=== PATIENT | female | born 1955 | race Caucasian/White ===

== ENCOUNTER 2018-06-26 17:36 | Emergency (ER) | payer OTHER ==
[2018-06-26] MEDS ORDERED: Sodium Chloride 0.9% 10 ML Syringe FLUSH PRN (18:25)
[2018-06-26] MEDS ORDERED: cefTRIAXone 2 GM Vial IV ONE (18:27)
[2018-06-26] MEDS ORDERED: Sodium Chloride 0.9% 1,000 ML IV SCH (18:30)
--- NOTE | 2018-06-26 18:44 | EDM.PDOC ---
ED HPI GENERAL MEDICAL PROBLEM - General Chief Complaint: Genitourinary Problem Stated Complaint: SENT BY FOR IV AND ANTIBIOTICS Time Seen by Provider: 06/26/18 17:57 Source of Information: Reports: Patient, RN Notes Reviewed History Limitations: Reports: No Limitations - History of Present Illness INITIAL COMMENTS - FREE TEXT/NARRATIVE: Patient is a 62-year-old female who presents to the ED today for the evaluation of a UTI. She was seen by Henrietta Lacy at the [facility] and she was found to have a "raging UTI" and an elevated white count at over 19,000. The patient states that her symptoms started this last with dysuria, frequency, urgency. She states that she was staying in a hotel somewhere of this weekend and noted that she had a fever. She states she was unable to check this at the time because she did not have a thermometer. She was started on oral Bactrim for management of the UTI and had only taken one dose of her antibiotic, but was called today by Henrietta Lacy on the results of her blood work and urinalysis and was told to come to the ED for further evaluation, possibly for IV fluids and antibiotics. The patient denies pain anywhere, chest pain, shortness of breath, she does have a small amount of nausea but has not had any vomiting or diarrhea. 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 - Related Data Allergies Allergy/AdvReac Type Severity Reaction Status Date / Time No Known Allergies Allergy Verified 06/26/18 17:47 Home Meds: Home Meds Amitriptyline [Elavil] 50 mg PO DAILY 06/26/18 [History] Ciprofloxacin [Ciprofloxacin HCl] 250 mg PO BID #14 tab 06/26/18 [Rx] Citalopram [Citalopram HBr] 20 mg PO DAILY 06/26/18 [History] Fluticasone Propionate [Flonase] 2 spray NASBOTH DAILY 06/26/18 [History] Levothyroxine Sodium [Synthroid] 112 mcg PO DAILY 06/26/18 [History] Loratadine [Claritin] 10 mg PO DAILY 06/26/18 [History] SUMAtriptan [Sumatriptan] 1 spray AMBERLY ASDIRECTED PRN 06/26/18 [History] Past Medical History HEENT History: Reports: Impaired Vision, Sinusitis Other HEENT History: wears eyeglasses. 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: Musculoskeletal History: Reports: Fracture Neurological History: Reports: Migraines Endocrine/Metabolic History: Reports: Hypothyroidism Hematologic History: Reports: Anemia - Infectious Disease History Infectious Disease History: Reports: Chicken Pox, Mumps - Past Surgical History HEENT Surgical History: Reports: Tonsillectomy Female Surgical History: Reports: Hysterectomy Social & Family History - Tobacco Use Smoking Status *Q: Never Smoker Second Hand Smoke Exposure: No - Caffeine Use Caffeine Use: Reports: Coffee, Soda - Recreational Drug Use Recreational Drug Use: No ED ROS GENERAL - Review of Systems Review Of Systems: See Below Constitutional: Reports: Fever. Denies: Chills HEENT: Reports: No Symptoms Respiratory: Reports: No Symptoms Cardiovascular: Reports: No Symptoms Endocrine: Reports: No Symptoms GI/Abdominal: Reports: Nausea. Denies: Abdominal Pain, Constipation, Diarrhea, Vomiting : Reports: Dysuria, Frequency, Urgency. Denies: Flank Pain Musculoskeletal: Reports: No Symptoms Skin: Reports: No Symptoms Neurological: Reports: No Symptoms Psychiatric: Reports: No Symptoms Hematologic/Lymphatic: Reports: No Symptoms Immunologic: Reports: No Symptoms ED EXAM, RENAL/ - Physical Exam Exam: See Below Exam Limited By: No Limitations General Appearance: Alert, WD/WN, No Apparent Distress Eye Exam: Bilateral Eye: EOMI, Normal Inspection Ears: Normal External Exam Nose: Normal Inspection Throat/Mouth: Normal Inspection, Normal Lips, Normal Oropharynx, Normal Voice Head: Atraumatic, Normocephalic Neck: Normal Inspection Respiratory/Chest: No Respiratory Distress, Lungs Clear, Normal Breath Sounds, No Accessory Muscle Use, Chest Non-Tender Cardiovascular: Normal Peripheral Pulses, Regular Rate, Rhythm, No Murmur GI/Abdominal: Normal Bowel Sounds, Soft, Non-Tender, No Distention, No Mass Back Exam: Normal Inspection Extremities: Normal Inspection, Normal Capillary Refill Neurological: Alert, Oriented, Normal Cognition, No Motor/Sensory Deficits Psychiatric: Normal Affect, Normal Mood Skin Exam: Warm, Dry, Intact, Normal Color, No Rash Course - Vital Signs Last Recorded V/S: Last Vital Signs Temp 97.5 F 06/26/18 18:10 Pulse 74 06/26/18 18:10 Resp 16 06/26/18 18:10 BP 98/67 06/26/18 18:10 Pulse Ox 97 06/26/18 18:10 - Orders/Labs/Meds Orders: Active Orders 24 hr Category Date Time Status Peripheral IV Care [RC] . DIRECTED Care 06/26/18 18:26 Ordered CULTURE BLOOD [BC] Stat Lab 06/26/18 18:29 Ordered CULTURE BLOOD [BC] Stat Lab 06/26/18 18:29 Ordered Sodium Chloride 0.9% [Normal Saline] 1,000 ml Med 06/26/18 18:30 Ordered IV ASDIRECTED Sodium Chloride 0.9% [Saline Flush] Med 06/26/18 18:25 Ordered 10 ml FLUSH ASDIRECTED PRN cefTRIAXone [Rocephin] 2 gm Med 06/26/18 19:00 Active Sodium Chloride 0.9% [Normal Saline] 100 ml IV Q24H Blood Culture x2 Reflex Set [OM.PC] Stat Oth 06/26/18 18:28 Ordered Peripheral IV Insertion Adult [OM.PC] Routine Oth 06/26/18 18:24 Ordered Medication Orders Sodium Chloride (Normal Saline) 1,000 mls @ 500 mls/hr IV ASDIRECTED JD Last Admin: 06/26/18 18:52 Dose: 500 mls/hr Ceftriaxone Sodium 2 gm/ (Sodium Chloride) 100 mls @ 200 mls/hr IV Q24H JD Last Admin: 06/26/18 18:55 Dose: 200 mls/hr Sodium Chloride (Saline Flush) 10 ml FLUSH ASDIRECTED PRN PRN Reason: Keep Vein Open Last Admin: 06/26/18 18:37 Dose: 10 ml Meds: Medications Generic Name Dose Route Start Last Admin Trade Name Freq PRN Reason Stop Dose Admin Sodium Chloride 1,000 mls @ 500 mls/hr 06/26/18 18:30 06/26/18 18:52 Normal Saline IV 500 mls/hr ASDIRECTED JD Administration Ceftriaxone Sodium 2 gm/ 100 mls @ 200 mls/hr 06/26/18 19:00 06/26/18 18:55 Sodium Chloride IV 200 mls/hr Q24H JD Administration Sodium Chloride 10 ml 06/26/18 18:25 06/26/18 18:37 Saline Flush FLUSH 10 ml ASDIRECTED PRN Administration Keep Vein Open Discontinued Medications Generic Name Dose Route Start Last Admin Trade Name Freq PRN Reason Stop Dose Admin Ceftriaxone Sodium 2 gm 06/26/18 18:27 06/26/18 18:53 Rocephin IV 06/26/18 18:28 Not Given ONETIME ONE Ceftriaxone Sodium Confirm 06/26/18 18:45 06/26/18 18:53 Rocephin Administered 06/26/18 18:46 Not Given Dose 2 gm IV .STK-MED ONE Sodium Chloride Confirm 06/26/18 18:46 06/26/18 18:53 Normal Saline Administered 06/26/18 18:47 Not Given Dose 100 mls @ as directed .ROUTE .STK-MED ONE - Re-Assessments/Exams Free Text/Narrative Re-Assessment/Exam: 06/26/18 19:21 Patient presents to the ED for evaluation of urinary symptoms. The nurse at initial time of triage stated that she was more septic looking. At my time of evaluation the patient does not appear to exhibit these septic like symptoms. She states that she does have low blood pressure from time to time and does feel as if this might be the case today, she did have a blood pressure of 96/57 at initial evaluation. I have ordered IV fluids, 2 g Rocephin IV in management of this. I have also ordered 2 sets of blood cultures to figure out why her white blood cell count might be 19.9. Her UA at the [facility] is as follows : Color linda appearance cloudy pH 6.0 specific gravity 1.020 protein urine +2 glucose urine negative ketones urine trace Kortney Berg urine +1 occult blood urine +2 urobilinogen urine 4.0 nitrite positive leuk esterase +2 this was a clean catch urine. Urine microscopy was sent to our facility for further evaluation as their facility does not have the ability to do urine microscopy there. Her CBC is as follows: White blood cell count 19.9 red blood cell count 3.9 hemoglobin 12.6 hematocrit 36.7% MCV 93.6 MCH 32.1 MCHC 34.3 Red cell distribution with 46.4 and platelet count of 173. This was done without a differential as well. He did have a metabolic panel done at that clinic and it was also sent to this this facility for further evaluation as they do not have the ability to run a metabolic panel at their facility. They also did obtain a chest x-ray at the clinic and there was nothing acute appreciated on the two- view x-ray. It appears as if Henrietta did send the patient's urine in for culture as well. 06/26/18 20:30 Patient's antibiotic is done and she has got about half a bag of fluid. She states that she feels better, I will send her home with a prescription for oral ciprofloxacin 250 mg by mouth twice daily for 7 days. This will be sent to [facility] as per her choice. She will pick these up in the morning. I did recommend that she follow up in clinic by the end of this week as well. She will be notified if her urine culture results state that she needs different antibiotic therapy. Departure - Departure Time of Disposition: 20:31 Disposition: Home, Self-Care 01 Condition: Fair Clinical Impression: UTI, Urinary tract infectious disease - Discharge Information *PRESCRIPTION DRUG MONITORING PROGRAM REVIEWED*: No *COPY OF PRESCRIPTION DRUG MONITORING REPORT IN PATIENT BENNETT: No Prescriptions: Ciprofloxacin [Ciprofloxacin HCl] 250 mg PO BID #14 tab Instructions: Urinary Tract Infection, Adult, [id number] Referrals: Tahmina Lacy PA-C [Primary Care Provider] - Forms: ED Department Discharge Additional Instructions: You have been evaluated in the ED today for your urinary tract infection. You have been given 2 g of Rocephin IV in the ER tonight this should kick start her antibiotic coverage. Also given IV fluids to help with the symptoms. You have been provided with a prescription for ciprofloxacin this is an antibiotic for your UTI, has been electronic was sent to the [facility] please pick this up tomorrow and take as directed. Please increase your fluid intake as this also helps flush the bacteria out of her system. You will be called or notified if you need a change in antibiotics as your urine culture is pending. You may take Tylenol for your symptomatic fever. Recommend that you follow up at [facility] sometime in end of this week for reevaluation. Please return to the ED if your symptoms change or worsen. - My Orders Last 24 Hours: My Active Orders 06/26/18 18:24 Peripheral IV Insertion Adult [OM.PC] Routine 06/26/18 18:25 Sodium Chloride 0.9% [Saline Flush] 10 ml FLUSH ASDIRECTED PRN 06/26/18 18:26 Peripheral IV Care [RC] . DIRECTED 06/26/18 18:28 Blood Culture x2 Reflex Set [OM.PC] Stat 06/26/18 18:29 CULTURE BLOOD [BC] Stat CULTURE BLOOD [BC] Stat 06/26/18 18:30 Sodium Chloride 0.9% [Normal Saline] 1,000 ml IV ASDIRECTED 06/26/18 19:00 cefTRIAXone [Rocephin] 2 gm Sodium Chloride 0.9% [Normal Saline] 100 ml IV Q24H - Assessment/Plan Last 24 Hours: My Active Orders 06/26/18 18:24 Peripheral IV Insertion Adult [OM.PC] Routine 06/26/18 18:25 Sodium Chloride 0.9% [Saline Flush] 10 ml FLUSH ASDIRECTED PRN 06/26/18 18:26 Peripheral IV Care [RC] . DIRECTED 06/26/18 18:28 Blood Culture x2 Reflex Set [OM.PC] Stat 06/26/18 18:29 CULTURE BLOOD [BC] Stat CULTURE BLOOD [BC] Stat 06/26/18 18:30 Sodium Chloride 0.9% [Normal Saline] 1,000 ml IV ASDIRECTED 06/26/18 19:00 cefTRIAXone [Rocephin] 2 gm Sodium Chloride 0.9% [Normal Saline] 100 ml IV Q24H
[2018-06-26] MEDS ORDERED: cefTRIAXone 2 GM AdvVial IV ONE (18:45)
[2018-06-26] MEDS ORDERED: Sodium Chloride 0.9% 100 ML ONE (18:46)
[2018-06-26] MEDS ORDERED: cefTRIAXone 2 GM in Sodium Chloride 0.9% 100 ML IV SCH (19:00)
== END 2018-06-26 20:49 | disposition home or self-care (01) ==
LOC: JD.ED 17:36
DX: N39.0 Urinary tract infection, site not specified (principal); Z79.899 Other long term (current) drug therapy; E03.9 Hypothyroidism, unspecified
CPT/HCPCS: 36415; 87040; 96361; 96365; 99283; J0696; J7030; J7040

== ENCOUNTER 2018-06-28 16:40 | Inpatient (IN) | payer OTHER ==
[2018-06-28] MEDS ORDERED: Sodium Chloride 0.9% 10 ML Syringe FLUSH PRN (17:30)
[2018-06-28] MEDS ORDERED: cefTRIAXone 2 GM in Sodium Chloride 0.9% 100 ML IV ONE ×2 (17:31→17:45)
[2018-06-28] MEDS: Sodium Chloride 0.9% 1,000 ML IV SCH (17:56)
--- NOTE | 2018-06-28 18:16 | EDM.PDOC ---
ED HPI GENERAL MEDICAL PROBLEM - General Chief Complaint: Fever Stated Complaint: SENT BY DR Raymundo Seen by Provider: 06/28/18 16:51 Source of Information: Reports: Patient, Family, Provider History Limitations: Reports: No Limitations - History of Present Illness INITIAL COMMENTS - FREE TEXT/NARRATIVE: The patient presents from the [place] clinic with fevers, UTI and bacteremia. She was seen a few days ago at the clinic in [place] for a bad UTI. Her urine was positive for a UTI and her WBC was elevated at 19. She was sent here for further management. Blood cultures were obtained, fluids were given and a CMP was done. She was given rocephin here and put on cipro. She then followed up with Henrietta Lacy. Her WBC was coming down and her Bili and liver enzymes were coming down. She was given another shot of rocephin. Her blood cultures came back positive for E-coli. Those results were called to Henrietta at the clinic by Dr Ruelas. He felt she could be treated outpatient. She is still having fevers and chills. She is able to eat and drink. She feels a little better. Henrietta did order an US tomorrow because the patient looked a little jaundice. Onset: Gradual Duration: Day(s): Location: Reports: Other (dysuria) Quality: Reports: Burning Severity: Mild Improves with: Reports: None Worsens with: Reports: None Associated Symptoms: Reports: Fever/Chills. Denies: Chest Pain, Cough, Headaches, Nausea/Vomiting, Shortness of Breath - Related Data Allergies Allergy/AdvReac Type Severity Reaction Status Date / Time No Known Allergies Allergy Verified 06/28/18 16:56 Home Meds: Home Meds Amitriptyline [Elavil] 50 mg PO DAILY 06/26/18 [History] Ciprofloxacin [Ciprofloxacin HCl] 250 mg PO BID #14 tab 06/26/18 [Rx] Citalopram [Citalopram HBr] 20 mg PO DAILY 06/26/18 [History] Fluticasone Propionate [Flonase] 2 spray NASBOTH DAILY 06/26/18 [History] Levothyroxine Sodium [Synthroid] 112 mcg PO DAILY 06/26/18 [History] Loratadine [Claritin] 10 mg PO DAILY 06/26/18 [History] SUMAtriptan [Sumatriptan] 1 spray AMBERLY ASDIRECTED PRN 06/26/18 [History] Past Medical History HEENT History: Reports: Impaired Vision, Sinusitis Other HEENT History: wears eyeglasses. 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: Musculoskeletal History: Reports: Fracture Neurological History: Reports: Migraines Endocrine/Metabolic History: Reports: Hypothyroidism Hematologic History: Reports: Anemia - Infectious Disease History Infectious Disease History: Reports: Chicken Pox, Mumps - Past Surgical History HEENT Surgical History: Reports: Tonsillectomy Female Surgical History: Reports: Hysterectomy Social & Family History - Tobacco Use Smoking Status *Q: Unknown Ever Smoked - Caffeine Use Caffeine Use: Reports: Coffee, Soda ED ROS GENERAL - Review of Systems Review Of Systems: See Below Constitutional: Reports: Fever, Chills HEENT: Reports: No Symptoms Respiratory: Reports: No Symptoms Cardiovascular: Reports: No Symptoms Endocrine: Reports: No Symptoms GI/Abdominal: Reports: No Symptoms : Reports: No Symptoms ED EXAM, SEPSIS - Physical Exam Exam: See Below Exam Limited By: No Limitations General Appearance: Alert, No Apparent Distress Ears: Normal External Exam Nose: Normal Inspection Head: Atraumatic, Normocephalic Neck: Normal Inspection Respiratory/Chest: No Respiratory Distress, Lungs Clear, Normal Breath Sounds Cardiovascular: Regular Rate, Rhythm, No Edema, No Murmur GI/Abdominal Exam: Soft, Non-Tender, No Organomegaly, No Mass Back: Normal Inspection Extremities: Normal Inspection Course - Vital Signs Last Recorded V/S: Last Vital Signs Temp 98.3 F 06/28/18 16:53 Pulse 84 06/28/18 16:53 Resp 16 06/28/18 16:53 BP 110/84 06/28/18 16:53 Pulse Ox 98 06/28/18 16:53 - Orders/Labs/Meds Orders: Active Orders 24 hr Category Date Time Status Cardiac Monitoring [RC] . DIRECTED Care 06/28/18 17:30 Active Peripheral IV Care [RC] . DIRECTED Care 06/28/18 17:30 Active C-REACTIVE PROTEIN [CHEM] Stat Lab 06/28/18 17:50 Results COMPREHENSIVE METABOLIC PN,CMP [CHEM] Stat Lab 06/28/18 17:50 Results Sodium Chloride 0.9% [Normal Saline] 1,000 ml Med 06/28/18 17:30 Active IV ASDIRECTED Sodium Chloride 0.9% [Saline Flush] Med 06/28/18 17:30 Active 10 ml FLUSH ASDIRECTED PRN Peripheral IV Insertion Adult [OM.PC] Stat Oth 06/28/18 17:30 Ordered Medication Orders Sodium Chloride (Normal Saline) 1,000 mls @ 125 mls/hr IV ASDIRECTED JD Last Admin: 06/28/18 17:56 Dose: 125 mls/hr Sodium Chloride (Saline Flush) 10 ml FLUSH ASDIRECTED PRN PRN Reason: Keep Vein Open Last Admin: 06/28/18 17:57 Dose: 10 ml Labs: Laboratory Tests 06/28/18 06/28/18 Range/Units 17:50 17:50 WBC 7.90 (3.98-10.04) K/mm3 RBC 3.47 L (3.98-5.22) M/mm3 Hgb 10.6 L (11.2-15.7) gm/L Hct 31.5 L (34.1-44.9) % MCV 90.8 (79.4-94.8) fl MCH 30.5 (25.6-32.2) pg MCHC 33.7 (32.2-35.5) g/dl RDW Std Deviation 42.3 (36.4-46.3) fL Plt Count 183 (182-369) K/mm3 MPV 10.7 (9.4-12.3) fl Neut % (Auto) 62.5 (34.0-71.1) % Lymph % (Auto) 16.1 L (19.3-51.7) % [place] % (Auto) 19.6 H (4.7-12.5) % Eos % (Auto) 0.9 (0.7-5.8) Baso % (Auto) 0.3 (0.1-1.2) % Neut # (Auto) 4.94 (1.56-6.13) K/mm3 Lymph # (Auto) 1.27 (1.18-3.74) K/mm3 [place] # (Auto) 1.55 H (0.24-0.36) K/mm3 Eos # (Auto) 0.07 (0.04-0.36) K/mm3 Baso # (Auto) 0.02 (0.01-0.08) K/mm3 Manual Slide Review Abnormal smear Sodium 134 L (136-145) mEq/L Potassium 3.6 (3.5-5.1) mEq/L Chloride 102 (98-107) mEq/L Carbon Dioxide 20 L (21-32) mEq/L Anion Gap 15.6 H (5-15) BUN 18 (7-18) mg/dL Creatinine 1.4 H (0.55-1.02) mg/dL Est Cr Clr Drug Dosing TNP Estimated GFR (MDRD) 38 (>60) mL/min BUN/Creatinine Ratio 12.9 L (14-18) Glucose 106 (80-115) mg/dL Calcium 8.5 (8.5-10.1) mg/dL Total Bilirubin 0.8 (0.2-1.0) mg/dL AST 40 H (15-37) U/L ALT 61 H (14-59) U/L Alkaline Phosphatase 130 H (46-116) U/L Total Protein 6.5 (6.4-8.2) g/dl Albumin 2.5 L (3.4-5.0) g/dl Globulin 4.0 gm/dL Albumin/Globulin Ratio 0.6 L (1-2) Meds: Medications Generic Name Dose Route Start Last Admin Trade Name Freq PRN Reason Stop Dose Admin Sodium Chloride 1,000 mls @ 125 mls/hr 06/28/18 17:30 06/28/18 17:56 Normal Saline IV 125 mls/hr ASDIRECTED JD Administration Sodium Chloride 10 ml 06/28/18 17:30 06/28/18 17:57 Saline Flush FLUSH 10 ml ASDIRECTED PRN Administration Keep Vein Open Discontinued Medications Generic Name Dose Route Start Last Admin Trade Name Freq PRN Reason Stop Dose Admin Ceftriaxone Sodium 2 gm/ 100 mls @ 200 mls/hr 06/28/18 17:31 06/28/18 18:00 Sodium Chloride IV 06/28/18 18:00 Not Given ONETIME ONE Ceftriaxone Sodium 2 gm/ 100 mls @ 200 mls/hr 06/28/18 17:45 06/28/18 17:56 Sodium Chloride IV 06/28/18 18:14 200 mls/hr ONETIME ONE Administration - Re-Assessments/Exams Free Text/Narrative Re-Assessment/Exam: 06/28/18 18:18 I ordered an IV NS at 125mL/hr, rocephin 2 grams IV, and labs. 06/28/18 18:25 Her WBC is normal now at 7.9. ON 06/26 it was 19 and on 06/27 it was 10.92. Her creatinine is still elevated at 1.4. Her total bili has improved from 1.9 to 0.8. Her AST has improved from 53 to 40. Her ALT has improved from 76 to 61. Her alk phos is elevated at 130. I did order an US of her RUQ because of the elevated bili. She had no pain in the RUQ though. She told me that she last ate at noon but when the tech came in to do the US she admitted to eating a rice crispy bar at about 3:30. They do have a spot in the morning as needed. 06/28/18 18:[address] Ngo and he agreed to the admission. Departure - Departure Time of Disposition: 18:35 Disposition: Admitted As Inpatient 67 Condition: Fair Clinical Impression: UTI, Urinary tract infectious disease, Bacteremia - Discharge Information Referrals: Tahmina Lacy PA-C [Primary Care Provider] - Forms: ED Department Discharge - My Orders Last 24 Hours: My Active Orders 06/28/18 17:30 Cardiac Monitoring [RC] . DIRECTED Peripheral IV Care [RC] . DIRECTED Sodium Chloride 0.9% [Normal Saline] 1,000 ml IV ASDIRECTED Sodium Chloride 0.9% [Saline Flush] 10 ml FLUSH ASDIRECTED PRN Peripheral IV Insertion Adult [OM.PC] Stat 06/28/18 17:50 C-REACTIVE PROTEIN [CHEM] Stat COMPREHENSIVE METABOLIC PN,CMP [CHEM] Stat - Assessment/Plan Last 24 Hours: My Active Orders 06/28/18 17:30 Cardiac Monitoring [RC] . DIRECTED Peripheral IV Care [RC] . DIRECTED Sodium Chloride 0.9% [Normal Saline] 1,000 ml IV ASDIRECTED Sodium Chloride 0.9% [Saline Flush] 10 ml FLUSH ASDIRECTED PRN Peripheral IV Insertion Adult [OM.PC] Stat 06/28/18 17:50 C-REACTIVE PROTEIN [CHEM] Stat COMPREHENSIVE METABOLIC PN,CMP [CHEM] Stat
[2018-06-28] MEDS ORDERED: Metoprolol Tartrate 5 MG/5 ML SDV IVPUSH PRN (20:41)
[2018-06-28] MEDS ORDERED: LORazepam 2 MG/ML SDV IVPUSH PRN (20:41)
[2018-06-28] MEDS ORDERED: hydrALAZINE 20 MG/ML SDV IVPUSH PRN (20:41)
[2018-06-28] MEDS ORDERED: Ondansetron 4 MG/2 ML SDV IV PRN (20:42)
[2018-06-28] MEDS ORDERED: Albuterol/Ipratropium 3.0-0.5 MG/3 ML Neb Soln NEB PRN (20:42)
[2018-06-28] MEDS ORDERED: Promethazine 6.25 MG in Sodium Chloride 0.9% 50 ML IV PRN (20:42)
[2018-06-28] MEDS ORDERED: Bisacodyl 5 MG Tab PO PRN (20:42)
[2018-06-28] MEDS ORDERED: Polyethylene Glycol 3350 Powder 17 GM Packet PO PRN (20:42)
[2018-06-28] MEDS ORDERED: LORazepam 2 MG/ML SDV IV PRN (20:42)
[2018-06-28] MEDS ORDERED: Temazepam 7.5 MG Cap PO PRN (20:42)
[2018-06-28] MEDS ORDERED: Docusate Sodium 100 MG Cap PO PRN (20:42)
[2018-06-28] MEDS ORDERED: Acetaminophen/HYDROcodone 325-5 MG Tab PO PRN (20:42)
[2018-06-28] MEDS ORDERED: HYDROmorphone 1 MG/ML Syringe IVPUSH PRN (20:42)
[2018-06-28] MEDS ORDERED: Potassium Chloride 20 MEQ Tab.ER PO SCH (21:45)
[2018-06-28] MEDS: Potassium Chloride 20 MEQ Tab.ER PO SCH (22:25)
--- NOTE | 2018-06-28 23:02 | PCM.SN ---
- Free Text/Narrative Note: Briefly seen and examined patient at bedside. She was recently diagnosed with UTI and was found to have Bacteremia on her blood culture due to E. coli. She has been treated outpatient with oral antibiotic and received IV Rocephin in ED prior to coming in to the floor. She denies having any issues. She looks clinically stable and her vitals on presentation are within normal limits. She has no leukocytosis but her CRP is considerably high at 23.9. Patient is essentially coming in for treatment of Bacteremia 2/2 UTI. Our plan is to repeat blood culture, screen for viral infection, continue antibiotic and supportive care. Discharge pending result of repeat blood culture.
[2018-06-29] MEDS: Potassium Chloride 20 MEQ Tab.ER PO SCH (00:57)
[2018-06-29] MEDS: Acetaminophen 325 MG Tab PO PRN ×2 (01:05→18:08)
[2018-06-29] MEDS: Sodium Chloride 0.9% 1,000 ML IV SCH ×3 (02:27→19:09)
[2018-06-29] MEDS: Levothyroxine 112 MCG Tab PO SCH (07:04)
[2018-06-29] MEDS ORDERED: SUMATRIPTAN NAS PRN (07:08)
[2018-06-29] MEDS: Saccharomyces Boulardii (Probiotic) 250 MG Cap PO SCH (09:09)
[2018-06-29] MEDS: Citalopram 20 MG Tab PO SCH (09:10)
[2018-06-29] MEDS: Loratadine 10 MG Tab PO SCH (09:10)
--- NOTE | 2018-06-29 09:17 | US ---
Limited abdominal ultrasound: Multiple real-time images of the upper right abdomen were obtained. Comparison: No prior abdominal imaging. Pancreas appears within normal limits. Liver shows no focal parenchymal abnormality. Gallbladder contains no shadowing gallstones. No gallbladder wall thickening is seen. Common bile duct is slightly prominent at 9-10 mm, etiology of this is not seen. Right kidney shows no hydronephrosis or mass and has a length of 10.5 cm. Portal vein shows normal hepatopedal flow. Impression: 1. Slightly dilated CBD with no additional biliary abnormality being seen. MRCP could be obtained to further evaluate. 2. Other portions of the right upper quadrant abdominal ultrasound are unremarkable. Diagnostic code #3
[2018-06-29] MEDS: Benzocaine/Cetylpyridinium/Menthol Lozenge MUCMEM PRN ×2 (12:16→20:41)
--- NOTE | 2018-06-29 13:19 | MR ---
MRI abdomen (without contrast) Technique: Various sequences were obtained in axial and coronal planes as well as MR cholangiogram exam. Findings: Common bile duct is dilated up to 1.2 cm. Common hepatic duct is also dilated up to 1.0 cm. Pancreatic duct appears mildly prominent 4.5 mm. There are no filling defects seen within the distal CBD to indicate an etiology of obstructing stone. Mild stenosis at the sphincter of Mario is possible as an etiology. Gallbladder contains no filling defects to indicate gallstones. Other visualized portions of the upper abdominal structures appear within normal limits. Impression: 1. Mildly dilated CHD and CBD with no filling defects seen to indicate retained stone as an etiology. Difficult to exclude stenosis at the sphincter of Mario as an etiology. Formal ERCP could be considered to further evaluate. Diagnostic code #3
--- NOTE | 2018-06-29 13:23 | PCM.HP ---
H&P History of Present Illness - General Date of Service: 06/29/18 Admit Problem/Dx: Admission Diagnosis/Problem Admission Diagnosis/Problem Bacteremia Source of Information: Patient, Old Records, Provider, RN, RN Notes Reviewed History Limitations: Reports: No Limitations - History of Present Illness Initial Comments - Free Text/Narative: Daisha Aguila is a 62 yo female who presented to our ED from [facility] with fevers, UTI, and bacteremia. She was seen in the [facility] and diagnosed with UTI. Her WBC was also elevated at 19. She was sent to the ED for further management and at that time blood cultures were obtained fluids were given and a CMP was done. She is given a dose of Rocephin and put on by mouth Cipro and discharged to follow up with Nya Lacy PA-C. In follow-up WBC was noted to be coming down along with her bilirubin and liver enzymes. She received another shot of Rocephin. Her blood cultures and returned positive for Escherichia coli and these were reported back to her PCP by the ED provider. At that time it was felt she could be treated as outpatient however she continued to have fever and chills. Reports she is still able to eat and drink and does feel a little better. Abdominal ultrasound was ordered and originally was going to be completed outpatient as it was thought she looked well jaundice. In the ED Was 98.3. Pulse 84. Respirations 16. Blood pressure 110/84. Pulse ox 98%. Labs are obtained: WBC 7.90. Hemoglobin 10.6. Hematocrit 31.5. She is normocytic. Neutrophils are normal at 60.5. Sodium is just a smidge low at 134. Potassium 3.6. Chloride 102. Corrected 20. Anion gap is 15.6. BUN is 18. Creatinine is 1.4. GFR is 38. Glucose 106. Calcium 8.5. Total bilirubin 0.8. AST is 40, ALT 61, alkaline phosphatase 1:30. Protein is 6.5. Albumin is low at 2.5. She started on IV fluids and 2 g Rocephin. She is reporting pain in the right upper quadrant. She carries a history of impaired vision, recurrent UTIs, migraines, hypothyroidism, anemia. She is a DNR/DNI. Her PCP is Nya Lacy PA-C. - Related Data Allergies/Adverse Reactions: Allergies Allergy/AdvReac Type Severity Reaction Status Date / Time No Known Allergies Allergy Verified 06/28/18 19:38 Home Medications: Home Meds Amitriptyline [Elavil] 50 mg PO DAILY 06/26/18 [History] Ciprofloxacin [Ciprofloxacin HCl] 250 mg PO BID #14 tab 06/26/18 [Rx] Citalopram [Citalopram HBr] 20 mg PO DAILY 06/26/18 [History] Fluticasone Propionate [Flonase] 2 spray NASBOTH DAILY 06/26/18 [History] Levothyroxine Sodium [Synthroid] 112 mcg PO DAILY 06/26/18 [History] Loratadine [Claritin] 10 mg PO DAILY 06/26/18 [History] SUMAtriptan [Sumatriptan] 1 spray AMBERLY ASDIRECTED PRN 06/26/18 [History] Past Medical History HEENT History: Reports: Impaired Vision, Sinusitis Other HEENT History: wears eyeglasses. 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: Musculoskeletal History: Reports: Fracture Neurological History: Reports: Migraines Endocrine/Metabolic History: Reports: Hypothyroidism Hematologic History: Reports: Anemia - Infectious Disease History Infectious Disease History: Reports: Chicken Pox, Mumps - Past Surgical History HEENT Surgical History: Reports: Tonsillectomy Female Surgical History: Reports: Hysterectomy Endocrine Surgical History: Reports: None Neurological Surgical History: Reports: None Social & Family History - Family History Family Medical History: Noncontributory - Tobacco Use Smoking Status *Q: Never Smoker Second Hand Smoke Exposure: No - Caffeine Use Caffeine Use: Reports: None - Recreational Drug Use Recreational Drug Use: No H&P Review of Systems - Review of Systems: Review Of Systems: See Below General: Reports: No Symptoms. Denies: Fever, Chills, Malaise, Weakness, Fatigue HEENT: Reports: No Symptoms. Denies: Headaches, Sore Throat Pulmonary: Reports: No Symptoms. Denies: Shortness of Breath, Wheezing, Pleuritic Chest Pain, Cough, Sputum Cardiovascular: Reports: No Symptoms. Denies: Chest Pain, Palpitations, Dyspnea on Exertion, Edema, Lightheadedness Gastrointestinal: Reports: No Symptoms. Denies: Abdominal Pain, Constipation, Diarrhea, Nausea, Vomiting Genitourinary: Reports: No Symptoms. Denies: Frequency, Pain Musculoskeletal: Reports: No Symptoms Skin: Reports: No Symptoms. Denies: Cyanosis, Jaundice Psychiatric: Reports: No Symptoms. Denies: Confusion Neurological: Reports: No Symptoms. Denies: Trouble Speaking, Difficulty Walking Hematologic/Lymphatic: Reports: No Symptoms Immunologic: Reports: No Symptoms Exam - Exam Exam: See Below - Vital Signs Vital Signs: Last Vital Signs Temp 99.1 F 06/29/18 09:05 Pulse 76 06/29/18 09:05 Resp 16 06/29/18 09:05 BP 95/68 06/29/18 09:05 Pulse Ox 98 06/29/18 09:05 Weight: 172 lb 1.6 oz - Exam Quality Assessment: DVT Prophylaxis General: Alert, Oriented, Cooperative. No: Mild Distress HEENT: Conjunctiva Clear, EACs Clear, EOMI, Hearing Intact, Mucosa Moist & [place] , Nares Patent, Posterior Pharynx Clear, PERRLA Neck: Supple, Trachea Midline Lungs: Clear to Auscultation, Normal Respiratory Effort Cardiovascular: Regular Rate, Regular Rhythm GI/Abdominal Exam: Normal Bowel Sounds, Soft, Non-Tender, No Organomegaly, No Distention, No Abnormal Bruit, No Mass (Female) Exam: Deferred Rectal (Female) Exam: Deferred Back Exam: Normal Inspection, Full Range of Motion Extremities: Normal Inspection, Normal Range of Motion, Non-Tender, No Pedal Edema, Normal Capillary Refill Peripheral Pulses: 2+: Radial (L), Radial (R), Dorsalis Pedis (L), Dorsalis Pedis (R) Skin: Warm, Dry, Intact Neurological: Cranial Nerves Intact (grossly) Neuro Extensive - Mental Status: Alert, Oriented x3, Normal Mood/Affect - Patient Data Lab Results Last 24 hrs: Laboratory Results - last 24 hr 06/28/18 06/28/18 06/29/18 Range/Units 17:50 17:50 05:52 WBC 7.90 7.45 (3.98-10.04) K/mm3 RBC 3.47 L 3.37 L (3.98-5.22) M/mm3 Hgb 10.6 L 10.2 L (11.2-15.7) gm/L Hct 31.5 L 30.9 L (34.1-44.9) % MCV 90.8 91.7 (79.4-94.8) fl MCH 30.5 30.3 (25.6-32.2) pg MCHC 33.7 33.0 (32.2-35.5) g/dl RDW Std Deviation 42.3 43.0 (36.4-46.3) fL Plt Count 183 186 (182-369) K/mm3 MPV 10.7 11.1 (9.4-12.3) fl Neut % (Auto) 62.5 60.1 (34.0-71.1) % Lymph % (Auto) 16.1 L 17.3 L (19.3-51.7) % Bureau % (Auto) 19.6 H 19.3 H (4.7-12.5) % Eos % (Auto) 0.9 1.7 (0.7-5.8) Baso % (Auto) 0.3 0.5 (0.1-1.2) % Neut # (Auto) 4.94 4.47 (1.56-6.13) K/mm3 Lymph # (Auto) 1.27 1.29 (1.18-3.74) K/mm3 Bureau # (Auto) 1.55 H 1.44 H (0.24-0.36) K/mm3 Eos # (Auto) 0.07 0.13 (0.04-0.36) K/mm3 Baso # (Auto) 0.02 0.04 (0.01-0.08) K/mm3 Manual Slide Review Abnormal smear Normal smear Sodium 134 L (136-145) mEq/L Potassium 3.6 (3.5-5.1) mEq/L Chloride 102 (98-107) mEq/L Carbon Dioxide 20 L (21-32) mEq/L Anion Gap 15.6 H (5-15) BUN 18 (7-18) mg/dL Creatinine 1.4 H (0.55-1.02) mg/dL Est Cr Clr Drug Dosing TNP Estimated GFR (MDRD) 38 (>60) mL/min BUN/Creatinine Ratio 12.9 L (14-18) Glucose 106 (80-115) mg/dL Calcium 8.5 (8.5-10.1) mg/dL Magnesium (1.8-2.4) mg/dl Total Bilirubin 0.8 (0.2-1.0) mg/dL AST 40 H (15-37) U/L ALT 61 H (14-59) U/L Alkaline Phosphatase 130 H (46-116) U/L C-Reactive Protein 23.9 H* (<1.0) mg/dL Total Protein 6.5 (6.4-8.2) g/dl Albumin 2.5 L (3.4-5.0) g/dl Globulin 4.0 gm/dL Albumin/Globulin Ratio 0.6 L (1-2) Urine Color (Yellow) Urine Appearance (Clear) Urine pH (5.0-8.0) Ur Specific Golden (1.005-1.030) Urine Protein (Negative) Urine Glucose (UA) (Negative) Urine Ketones (Negative) Urine Occult Blood (Negative) Urine Nitrite (Negative) Urine Bilirubin (Negative) Urine Urobilinogen (0.2-1.0) Ur Leukocyte Esterase (Negative) Urine RBC (0-5) /hpf Urine WBC (0-5) /hpf Urine WBC Clumps (NOT SEEN) /hpf Ur Epithelial Cells (0-5) /hpf Urine Bacteria (FEW) /hpf Urine Mucus (FEW) /hpf 06/29/18 06/29/18 Range/Units 05:52 07:20 WBC (3.98-10.04) K/mm3 RBC (3.98-5.22) M/mm3 Hgb (11.2-15.7) gm/L Hct (34.1-44.9) % MCV (79.4-94.8) fl MCH (25.6-32.2) pg MCHC (32.2-35.5) g/dl RDW Std Deviation (36.4-46.3) fL Plt Count (182-369) K/mm3 MPV (9.4-12.3) fl Neut % (Auto) (34.0-71.1) % Lymph % (Auto) (19.3-51.7) % Bureau % (Auto) (4.7-12.5) % Eos % (Auto) (0.7-5.8) Baso % (Auto) (0.1-1.2) % Neut # (Auto) (1.56-6.13) K/mm3 Lymph # (Auto) (1.18-3.74) K/mm3 Bureau # (Auto) (0.24-0.36) K/mm3 Eos # (Auto) (0.04-0.36) K/mm3 Baso # (Auto) (0.01-0.08) K/mm3 Manual Slide Review Sodium 139 (136-145) mEq/L Potassium 4.6 (3.5-5.1) mEq/L Chloride 109 H (98-107) mEq/L Carbon Dioxide 21 (21-32) mEq/L Anion Gap 13.6 (5-15) BUN 15 (7-18) mg/dL Creatinine 1.2 H (0.55-1.02) mg/dL Est Cr Clr Drug Dosing 56.81 Estimated GFR (MDRD) 46 (>60) mL/min BUN/Creatinine Ratio 12.5 L (14-18) Glucose 109 (80-115) mg/dL Calcium 8.4 L (8.5-10.1) mg/dL Magnesium 1.9 (1.8-2.4) mg/dl Total Bilirubin (0.2-1.0) mg/dL AST (15-37) U/L ALT (14-59) U/L Alkaline Phosphatase (46-116) U/L C-Reactive Protein 17.8 H* (<1.0) mg/dL Total Protein (6.4-8.2) g/dl Albumin (3.4-5.0) g/dl Globulin gm/dL Albumin/Globulin Ratio (1-2) Urine Color Yellow (Yellow) Urine Appearance Clear (Clear) Urine pH 6.0 (5.0-8.0) Ur Specific Golden 1.020 (1.005-1.030) Urine Protein 1+ H (Negative) Urine Glucose (UA) Negative (Negative) Urine Ketones Negative (Negative) Urine Occult Blood Trace-intact H (Negative) Urine Nitrite Negative (Negative) Urine Bilirubin Negative (Negative) Urine Urobilinogen 1.0 (0.2-1.0) Ur Leukocyte Esterase 1+ H (Negative) Urine RBC 0-5 (0-5) /hpf Urine WBC 5-10 H (0-5) /hpf Urine WBC Clumps Rare (NOT SEEN) /hpf Ur Epithelial Cells 0-5 (0-5) /hpf Urine Bacteria Few (FEW) /hpf Urine Mucus Not seen (FEW) /hpf Result Diagrams: 06/29/18 05:52 06/29/18 05:52 Oliver Results Last 24 hrs: Microbiology 06/28/18 21:15 Anaerobic Blood Culture - Final Blood - Venous - Lab Draw - Problem List (1) Bacteremia SNOMED Code(s): 9617358 ICD Code: R78.81 - BACTEREMIA Status: Acute Priority: High Current Visit: Yes (2) UTI, Urinary tract infectious disease SNOMED Code(s): 78480502 ICD Code: N39.0 - URINARY TRACT INFECTION, SITE NOT SPECIFIED Status: Acute Priority: High Current Visit: Yes (3) Transaminitis SNOMED Code(s): 045357420, 430535913 ICD Code: R74.0 - NONSPEC ELEV OF LEVELS OF TRANSAMNS & LACTIC ACID DEHYDRGNSE Status: Acute Current Visit: Yes (4) Elevated bilirubin SNOMED Code(s): 945344158 ICD Code: R17 - UNSPECIFIED JAUNDICE Status: Acute Current Visit: Yes Problem List Initiated/Reviewed/Updated: Yes Orders Last 24hrs: Active Orders 24 hr Category Date Time Status Patient Status [ADT] Routine ADT 06/28/18 18:46 Active Antiembolic Devices [RC] BID Care 06/28/18 20:51 Active Cardiac Monitoring [RC] . DIRECTED Care 06/28/18 17:30 Active Height and Weight [RC] 04 Care 06/28/18 20:42 Active Intake and Output [RC] 04,16 Care 06/28/18 20:42 Active Oxygen Therapy [RC] PRN Care 06/28/18 20:42 Active RT Aerosol Therapy [RC] ASDIRECTED Care 06/28/18 20:52 Active Up With Assistance [RC] BID Care 06/28/18 20:42 Active Up ad Kierra [RC] BID Care 06/28/18 20:42 Active VTE/DVT Education [RC] BID Care 06/28/18 20:42 Active Vital Signs [RC] 00,04,08,12,16,20 Care 06/28/18 20:42 Active Consult to Case Management/Mail Room [CONS] Cons 06/28/18 20:42 Active Routine Consult to Spiritual Care [CONS] Routine Cons 06/28/18 20:42 Active OT Evaluation and Treatment [CONS] Routine Cons 06/28/18 20:42 Active PT Evaluation and Treatment [CONS] Routine Cons 06/28/18 20:42 Active BASIC METABOLIC PANEL,BMP [CHEM] AM Lab 06/30/18 05:11 Ordered BASIC METABOLIC PANEL,BMP [CHEM] AM Lab 07/01/18 05:11 Ordered BASIC METABOLIC PANEL,BMP [CHEM] AM Lab 07/02/18 05:11 Ordered C-REACTIVE PROTEIN [CHEM] AM Lab 06/30/18 05:11 Ordered C-REACTIVE PROTEIN [CHEM] AM Lab 07/01/18 05:11 Ordered C-REACTIVE PROTEIN [CHEM] AM Lab 07/02/18 05:11 Ordered CBC WITH AUTO DIFF [HEME] AM Lab 06/30/18 05:11 Ordered CBC WITH AUTO DIFF [HEME] AM Lab 07/01/18 05:11 Ordered CBC WITH AUTO DIFF [HEME] AM Lab 07/02/18 05:11 Ordered CULTURE BLOOD [BC] Stat Lab 06/28/18 21:15 Results CULTURE BLOOD [BC] Stat Lab 06/28/18 21:20 Received CULTURE URINE [RM] Routine Lab 06/29/18 07:20 Received MAGNESIUM [CHEM] AM Lab 06/30/18 05:11 Ordered MAGNESIUM [CHEM] AM Lab 07/01/18 05:11 Ordered MAGNESIUM [CHEM] AM Lab 07/02/18 05:11 Ordered RESPIRATORY PANEL Stat Lab 06/29/18 00:40 Received Acetaminophen [Tylenol] Med 06/28/18 20:42 Active 650 mg PO Q4H PRN Acetaminophen/HYDROcodone [[place] 325-5 MG] Med 06/28/18 20:42 Active 1 tab PO Q4H PRN Albuterol/Ipratropium [DuoNeb 3.0-0.5 MG/3 ML] Med 06/28/18 20:42 Active 3 ml NEB Q4H PRN Amitriptyline [Elavil] Med 06/29/18 21:00 Active 50 mg PO BEDTIME Benzocaine/Cetylpyrd/Menthol [Cepacol Sore Throat] Med 06/29/18 09:18 Active 1 lozenge MUCMEM Q2H PRN Bisacodyl [Dulcolax] Med 06/28/18 20:42 Active 5 mg PO DAILY PRN Citalopram [Celexa] Med 06/29/18 09:00 Active 20 mg PO DAILY Docusate Sodium [Colace] Med 06/28/18 20:42 Active 100 mg PO BID PRN Docusate Sodium/Sennosides [Senna Plus] Med 06/28/18 20:42 Active 1 tab PO BID PRN Flunisolide [Nasalide Nasal [place]] Med 06/29/18 09:00 Active 0 ml NASBOTH Q12H HYDROmorphone [Dilaudid] Med 06/28/18 20:42 Active 0.25 mg IVPUSH Q2H PRN LORazepam [Ativan] Med 06/28/18 20:42 Active 0.5 mg IV Q6H PRN LORazepam [Ativan] Med 06/28/18 20:41 Active 2 mg IVPUSH Q4H PRN Levothyroxine Med 06/29/18 06:00 Active 112 mcg PO ACBREAKFAST Loratadine [Claritin] Med 06/29/18 09:00 Active 10 mg PO DAILY Metoprolol Tartrate [Lopressor] Med 06/28/18 20:41 Active 5 mg IVPUSH Q4H PRN Ondansetron [Zofran] Med 06/28/18 20:42 Active 4 mg IV Q6H PRN Patient's Own Medication [Ptom] Med 06/29/18 07:08 Active 0 each AMBERLY ASDIRECTED PRN Pharmacy to Dose - Magnesium R [Pharmacy to Dose - Med 06/28/18 20:45 Active Magnesium Replacement] 1 dose .XX ASDIRECTED Pharmacy to Dose - Potassium R [Pharmacy to Dose - Med 06/28/18 20:45 Active Potassium Replacement] 1 dose .XX ASDIRECTED Polyethylene Glycol 3350 [MiraLAX] Med 06/28/18 20:42 Active 17 gm PO DAILY PRN Promethazine [Phenergan] 6.25 mg Med 06/28/18 20:42 Active Sodium Chloride 0.9% [Normal Saline] 50 ml IV Q6H Saccharomyces Boulardii [Florastor] Med 06/29/18 09:00 Active 250 mg PO DAILY Sodium Chloride 0.9% [Normal Saline] 1,000 ml Med 06/28/18 17:30 Active IV ASDIRECTED Sodium Chloride 0.9% [Saline Flush] Med 06/28/18 17:30 Active 10 ml FLUSH ASDIRECTED PRN Temazepam [Restoril] Med 06/28/18 20:42 Active 7.5 mg PO BEDTIME PRN cefTRIAXone [Rocephin] 2 gm Med 06/29/18 18:00 Active Sodium Chloride 0.9% [Normal Saline] 100 ml IV Q24H hydrALAZINE [Apresoline] Med 06/28/18 20:41 Active 20 mg IVPUSH Q4H PRN Blood Culture x2 Reflex Set [OM.PC] Stat Oth 06/28/18 20:42 Ordered Peripheral IV Insertion Adult [OM.PC] Stat Oth 06/28/18 17:30 Ordered Sequential Compression Device [OM.PC] Per Unit Routine Oth 06/28/18 20:46 Ordered Resuscitation Status Routine Resus Stat 06/28/18 21:26 Ordered Medication Orders Acetaminophen (Tylenol) 650 mg PO Q4H PRN PRN Reason: Pain (Mild 1-3)/fever Last Admin: 06/29/18 01:05 Dose: 650 mg Hydrocodone Bitart/Acetaminophen ([place] 325-5 Mg) 1 tab PO Q4H PRN PRN Reason: Pain (moderate 4-6) Albuterol/Ipratropium (Duoneb 3.0-0.5 Mg/3 Ml) 3 ml NEB Q4H PRN PRN Reason: Shortness Of Breath/wheezing Amitriptyline HCl (Elavil) 50 mg PO BEDTIME [facility] Benzocaine/Menthol (Cepacol Sore Throat) 1 lozenge MUCMEM Q2H PRN PRN Reason: Sore Throat Last Admin: 06/29/18 12:16 Dose: 1 lozenge Bisacodyl (Dulcolax) 5 mg PO DAILY PRN PRN Reason: Constipation Citalopram Hydrobromide (Celexa) 20 mg PO DAILY [facility] Last Admin: 06/29/18 09:10 Dose: 20 mg Docusate Sodium (Colace) 100 mg PO BID PRN PRN Reason: Constipation Flunisolide (Nasalide Nasal [place]) 0 ml NASBOTH Q12H [facility] Last Admin: 06/29/18 09:10 Dose: 2 spray Hydralazine HCl (Apresoline) 20 mg IVPUSH Q4H PRN PRN Reason: Hypertension Hydromorphone HCl (Dilaudid) 0.25 mg IVPUSH Q2H PRN PRN Reason: Pain (severe 7-10) Sodium Chloride (Normal Saline) 1,000 mls @ 125 mls/hr IV ASDIRECTED [facility] Last Admin: 06/29/18 09:11 Dose: 125 mls/hr Infusion: 06/29/18 09:11 Dose: 125 mls/hr Admin: 06/29/18 02:27 Dose: 125 mls/hr Infusion: 06/29/18 01:56 Dose: 125 mls/hr Admin: 06/28/18 17:56 Dose: 125 mls/hr Promethazine HCl 6.25 mg/ (Sodium Chloride) 50.25 mls @ 100 mls/hr IV Q6H PRN PRN Reason: Nausea/Vomiting Ceftriaxone Sodium 2 gm/ (Sodium Chloride) 100 mls @ 200 mls/hr IV Q24H [facility] Levothyroxine Sodium (Levothyroxine) 112 mcg PO ACBREAKFAST [facility] Last Admin: 06/29/18 07:04 Dose: 112 mcg Loratadine (Claritin) 10 mg PO DAILY [facility] Last Admin: 06/29/18 09:10 Dose: 10 mg Lorazepam (Ativan) 2 mg IVPUSH Q4H PRN PRN Reason: Seizures Lorazepam (Ativan) 0.5 mg IV Q6H PRN PRN Reason: Anxiety Magnesium Sulfate (Pharmacy To Dose - Magnesium Replacement) 1 dose .XX ASDIRECTED [facility] Metoprolol Tartrate (Lopressor) 5 mg IVPUSH Q4H PRN PRN Reason: Tachycardia Ondansetron HCl (Zofran) 4 mg IV Q6H PRN PRN Reason: Nausea/Vomiting Sumatriptan [ (Sumatriptan] 1 [place]) 0 each AMBERLY ASDIRECTED PRN PRN Reason: Headache Polyethylene Glycol (Miralax) 17 gm PO DAILY PRN PRN Reason: Constipation Potassium Chloride (Pharmacy To Dose - Potassium Replacement) 1 dose .XX ASDIRECTED [facility] Saccharomyces Boulardii (Florastor) 250 mg PO DAILY [facility] Last Admin: 06/29/18 09:09 Dose: 250 mg Senna/Docusate Sodium (Senna Plus) 1 tab PO BID PRN PRN Reason: Constipation Sodium Chloride (Saline Flush) 10 ml FLUSH ASDIRECTED PRN PRN Reason: Keep Vein Open Last Admin: 06/28/18 17:57 Dose: 10 ml Temazepam (Restoril) 7.5 mg PO BEDTIME PRN PRN Reason: Sleep Assessment/Plan Comment:: I/P: Acute: UTI -Failed outpatient treatment -Was seen in clinic and ED for UTI. Continued to have fever and chills -Was noted to be bacteremic and sent here for treatment -UA here shows 1+ protein, trace intact occult blood, 1+ leukocyte esterase, 5-10 WBCs. -4/4 blood cultures positive for E. Coli with some resistance, however sensitive to Rocephin -UC growing E. Coli sensitive to rocephin -Rocephin given in ED - continue -IV fluids as ordered -No leukocytosis -CRP 23.9-->17.8 -Probiotic -Tylenol for fever/pain Bacteremia -4/4 cultures positive for E. Coli with some resistances -2/2 UTI -Treatment as above -Repeat blood cultures drawn 48 Hours after treatment -IV fluids as ordered Weakness/fatigue -Likely 2/2 above -VRP ordered and pending -IV fluids as above BRANDON (Labs from clinic and here) -2/2 poor oral intake and medications -On multiple anticholinergic drugs -BUN 24-->19-->18-->15 -Creatinine 1.5-->1.4-->1.4-->1.3 -eGFR 35-->38-->38-->46 -IV fluids as ordered Elevated bilirubin/Transaminitis -Bilirubin noted to be 1.9 in clinic and provider believed patient looked jaundiced -Does not appear jaundiced here -Bilirubin here 1.6-->0.8 -Liver enzymes (clinic and here) -AST 53-->42-->40 -ALT 76-->63-->61 -Alk Phos 104-->116-->130 -Abdominal US was ordered outpatient but ultimately obtained here on 06/29/18 * 1. Slightly dilated CBD with no additional biliary abnormality being seen. MRCP could be obtained to further evaluate. * 2. Other portions of the right upper quadrant abdominal ultrasound are unremarkable. -No abdominal pain -MRCP obtained 06/29/18: * 1. Mildly dilated CHD and CBD with no filling deficits seen to indicate retained stone as an etiology. Difficult to exclude stenosis at the sphincter of OT as an etiology. Formal ERCP could be considered to further evaluate. -Will attempt to contact GI in [place] for further guidance -Likely will need follow-up outpatient if remains asymptomatic -Monitor CMPs Chronic: Impaired vision Recurrent UTIs Migraines Hypothyroidism Anemia Plan: Admit to medical floor PT/OT consult Spiritual care consult CM/SW for discharge planning Other orders as indicated above Home medications as ordered Routine AM labs DVT prophylaxis:SCDs; PCP: Nya Lacy PA-C
[2018-06-29] MEDS ORDERED: cefTRIAXone 2 GM in Sodium Chloride 0.9% 100 ML IV SCH (18:00)
[2018-06-29] MEDS: Amitriptyline 25 MG Tab PO SCH (20:40)
[2018-06-30] MEDS: Sodium Chloride 0.9% 1,000 ML IV SCH ×3 (03:48→21:29)
[2018-06-30] MEDS: Levothyroxine 112 MCG Tab PO SCH (07:18)
[2018-06-30] MEDS ORDERED: Piperacillin/Tazobactam 4.5 GM in Sodium Chloride 0.9% 100 ML IV ONE (09:00)
[2018-06-30] MEDS: Loratadine 10 MG Tab PO SCH (09:26)
[2018-06-30] MEDS: Saccharomyces Boulardii (Probiotic) 250 MG Cap PO SCH (09:26)
[2018-06-30] MEDS: Citalopram 20 MG Tab PO SCH (09:26)
[2018-06-30] MEDS ORDERED: Magnesium Oxide 400 MG Tab PO ONE (11:00)
[2018-06-30] MEDS: Acetaminophen 325 MG Tab PO PRN ×2 (11:16→18:27)
--- NOTE | 2018-06-30 13:18 | PCM.PN ---
- General Info Date of Service: 06/30/18 Admission Dx/Problem (Free Text): Admission Diagnosis/Problem Admission Diagnosis/Problem Bacteremia Subjective Update: Follow Up Functional Status: Reports: Pain Controlled, Tolerating Diet, Ambulating, Urinating. Denies: New Symptoms - Review of Systems General: Denies: Fever, Weakness, Fatigue, Malaise, Chills HEENT: Reports: No Symptoms Pulmonary: Denies: Shortness of Breath Cardiovascular: Denies: Chest Pain Gastrointestinal: Denies: Abdominal Pain, Decreased Appetite, Diarrhea, Difficulty Swallowing, Nausea, Vomiting Genitourinary: Denies: Dysuria, Frequency, Burning, Pain Musculoskeletal: Reports: No Symptoms Skin: Denies: Cyanosis, Mottled, Pallor, Diaphoresis, Bruising Neurological: Reports: No Symptoms. Denies: Difficulty Walking, Weakness Psychiatric: Reports: No Symptoms. Denies: Depression, Anxiety, Agitation Systems Review Comment:: No overnight or acute issues. She rested well and feels pretty good this AM. She is afebrile but her WBC has gone back up to 10.90. Her CRP is slightly to 18 from 17.8. Her liver enzymes also gone up from 40/61 to 118/131 with elevated GGT level of 156. He has no complaints. - Patient Data Vitals - Most Recent: Last Vital Signs Temp 36.6 C 06/30/18 11:03 Pulse 69 06/30/18 11:03 Resp 16 06/30/18 11:03 BP 109/59 L 06/30/18 11:03 Pulse Ox 98 06/30/18 11:03 Weight - Most Recent: 78.608 kg I&O - Last 24 Hours: Intake & Output 06/29/18 06/30/18 06/30/18 22:59 06:59 14:59 Intake Total 2956 2196 120 Output Total 500 Balance 2456 2196 120 Lab Results Last 24 Hours: Laboratory Results - last 24 hr 06/29/18 06/30/18 06/30/18 Range/Units 00:40 04:50 04:57 WBC 10.90 H (3.98-10.04) K/mm3 RBC 3.25 L (3.98-5.22) M/mm3 Hgb 9.8 L (11.2-15.7) gm/L Hct 29.8 L (34.1-44.9) % MCV 91.7 (79.4-94.8) fl MCH 30.2 (25.6-32.2) pg MCHC 32.9 (32.2-35.5) g/dl RDW Std Deviation 43.6 (36.4-46.3) fL Plt Count 201 (182-369) K/mm3 MPV 11.0 (9.4-12.3) fl Neut % (Auto) 72.8 H (34.0-71.1) % Lymph % (Auto) 8.8 L (19.3-51.7) % [place] % (Auto) 15.4 H (4.7-12.5) % Eos % (Auto) 1.0 (0.7-5.8) Baso % (Auto) 0.4 (0.1-1.2) % Neut # (Auto) 7.94 H (1.56-6.13) K/mm3 Lymph # (Auto) 0.96 L (1.18-3.74) K/mm3 [place] # (Auto) 1.68 H (0.24-0.36) K/mm3 Eos # (Auto) 0.11 (0.04-0.36) K/mm3 Baso # (Auto) 0.04 (0.01-0.08) K/mm3 Manual Slide Review Normal smear Sodium 140 (136-145) mEq/L Potassium 4.0 (3.5-5.1) mEq/L Chloride 109 H (98-107) mEq/L Carbon Dioxide 20 L (21-32) mEq/L Anion Gap 15.0 (5-15) BUN 10 (7-18) mg/dL Creatinine 1.0 (0.55-1.02) mg/dL Est Cr Clr Drug Dosing 68.28 mL/min Estimated GFR (MDRD) 56 (>60) mL/min BUN/Creatinine Ratio 10.0 L (14-18) Glucose 103 (80-115) mg/dL Calcium 8.2 L (8.5-10.1) mg/dL Magnesium 1.7 L (1.8-2.4) mg/dl Total Bilirubin 0.7 (0.2-1.0) mg/dL GGT (5-55) U/L AST 118 H (15-37) U/L ALT 131 H (14-59) U/L Alkaline Phosphatase 186 H (46-116) U/L C-Reactive Protein 18.0 H* (<1.0) mg/dL Total Protein 6.2 L (6.4-8.2) g/dl Albumin 2.2 L (3.4-5.0) g/dl Globulin 4.0 gm/dL Albumin/Globulin Ratio 0.6 L (1-2) Adenovirus (PCR) Not detected (Not Detected) B. pertussis DNA (PCR) Not detected (Not Detected) B.parapertussis DNA PCR Not detected (Not Detected) C. pneumoniae DNA (PCR) Not detected (Not Detected) Coronavirus (PCR) Not detected (Not Detected) Human Metapneumovir PCR Not detected (Not Detected) Influenza A (RT-PCR) Not detected (Not Detected) Influenza B (RT-PCR) Not detected (Not Detected) M. pneumoniae (PCR) Not detected (Not Detected) Parainfluen 1,2,3,4 PCR Not detected (Not Detected) RSV (PCR) Not detected (Not Detected) Entero/Rhino (PCR) Not detected (Not Detected) 06/30/18 Range/Units 04:57 WBC (3.98-10.04) K/mm3 RBC (3.98-5.22) M/mm3 Hgb (11.2-15.7) gm/L Hct (34.1-44.9) % MCV (79.4-94.8) fl MCH (25.6-32.2) pg MCHC (32.2-35.5) g/dl RDW Std Deviation (36.4-46.3) fL Plt Count (182-369) K/mm3 MPV (9.4-12.3) fl Neut % (Auto) (34.0-71.1) % Lymph % (Auto) (19.3-51.7) % [place] % (Auto) (4.7-12.5) % Eos % (Auto) (0.7-5.8) Baso % (Auto) (0.1-1.2) % Neut # (Auto) (1.56-6.13) K/mm3 Lymph # (Auto) (1.18-3.74) K/mm3 [place] # (Auto) (0.24-0.36) K/mm3 Eos # (Auto) (0.04-0.36) K/mm3 Baso # (Auto) (0.01-0.08) K/mm3 Manual Slide Review Sodium (136-145) mEq/L Potassium (3.5-5.1) mEq/L Chloride (98-107) mEq/L Carbon Dioxide (21-32) mEq/L Anion Gap (5-15) BUN (7-18) mg/dL Creatinine (0.55-1.02) mg/dL Est Cr Clr Drug Dosing mL/min Estimated GFR (MDRD) (>60) mL/min BUN/Creatinine Ratio (14-18) Glucose (80-115) mg/dL Calcium (8.5-10.1) mg/dL Magnesium (1.8-2.4) mg/dl Total Bilirubin (0.2-1.0) mg/dL GGT 156 H (5-55) U/L AST (15-37) U/L ALT (14-59) U/L Alkaline Phosphatase (46-116) U/L C-Reactive Protein (<1.0) mg/dL Total Protein (6.4-8.2) g/dl Albumin (3.4-5.0) g/dl Globulin gm/dL Albumin/Globulin Ratio (1-2) Adenovirus (PCR) (Not Detected) B. pertussis DNA (PCR) (Not Detected) B.parapertussis DNA PCR (Not Detected) C. pneumoniae DNA (PCR) (Not Detected) Coronavirus (PCR) (Not Detected) Human Metapneumovir PCR (Not Detected) Influenza A (RT-PCR) (Not Detected) Influenza B (RT-PCR) (Not Detected) M. pneumoniae (PCR) (Not Detected) Parainfluen 1,2,3,4 PCR (Not Detected) RSV (PCR) (Not Detected) Entero/Rhino (PCR) (Not Detected) Oliver Results Last 24 Hours: Microbiology 06/29/18 07:20 Urine Culture - Preliminary Urine, Clean Catch NO GROWTH AFTER 1 DAY 06/28/18 21:15 Aerobic Blood Culture - Preliminary Blood - Venous - Lab Draw NO GROWTH AFTER 1 DAY Anaerobic Blood Culture - Final 06/28/18 21:20 Aerobic Blood Culture - Preliminary Blood - Venous NO GROWTH AFTER 1 DAY Anaerobic Blood Culture - Preliminary NO GROWTH AFTER 1 DAY Med Orders - Current: Current Medications Acetaminophen (Tylenol) 650 mg PO Q4H PRN PRN Reason: Pain (Mild 1-3)/fever Last Admin: 06/30/18 11:16 Dose: 650 mg Hydrocodone Bitart/Acetaminophen ([place]obb 325-5 Mg) 1 tab PO Q4H PRN PRN Reason: Pain (moderate 4-6) Albuterol/Ipratropium (Duoneb 3.0-0.5 Mg/3 Ml) 3 ml NEB Q4H PRN PRN Reason: Shortness Of Breath/wheezing Amitriptyline HCl (Elavil) 50 mg PO BEDTIME [facility] Last Admin: 06/29/18 20:40 Dose: 50 mg Benzocaine/Menthol (Cepacol Sore Throat) 1 lozenge MUCMEM Q2H PRN PRN Reason: Sore Throat Last Admin: 06/29/18 20:41 Dose: 1 lozenge Bisacodyl (Dulcolax) 5 mg PO DAILY PRN PRN Reason: Constipation Citalopram Hydrobromide (Celexa) 20 mg PO DAILY [facility] Last Admin: 06/30/18 09:26 Dose: 20 mg Docusate Sodium (Colace) 100 mg PO BID PRN PRN Reason: Constipation Flunisolide (Nasalide Nasal [place]) 0 ml NASBOTH Q12H [facility] Last Admin: 06/29/18 20:40 Dose: 2 spray Hydralazine HCl (Apresoline) 20 mg IVPUSH Q4H PRN PRN Reason: Hypertension Hydromorphone HCl (Dilaudid) 0.25 mg IVPUSH Q2H PRN PRN Reason: Pain (severe 7-10) Sodium Chloride (Normal Saline) 1,000 mls @ 125 mls/hr IV ASDIRECTED [facility] Last Admin: 06/30/18 11:20 Dose: 125 mls/hr Promethazine HCl 6.25 mg/ (Sodium Chloride) 50.25 mls @ 100 mls/hr IV Q6H PRN PRN Reason: Nausea/Vomiting Ceftriaxone Sodium 2 gm/ (Sodium Chloride) 100 mls @ 200 mls/hr IV Q24H [facility] Piperacillin Sod/Tazobactam (Sod 4.5 gm/ Sodium Chloride) 100 mls @ 25 mls/hr IV Q8H [facility] Levothyroxine Sodium (Levothyroxine) 112 mcg PO ACBREAKFAST [facility] Last Admin: 06/30/18 07:18 Dose: 112 mcg Loratadine (Claritin) 10 mg PO DAILY [facility] Last Admin: 06/30/18 09:26 Dose: 10 mg Lorazepam (Ativan) 2 mg IVPUSH Q4H PRN PRN Reason: Seizures Lorazepam (Ativan) 0.5 mg IV Q6H PRN PRN Reason: Anxiety Magnesium Sulfate (Pharmacy To Dose - Magnesium Replacement) 1 dose .XX ASDIRECTED [facility] Metoprolol Tartrate (Lopressor) 5 mg IVPUSH Q4H PRN PRN Reason: Tachycardia Ondansetron HCl (Zofran) 4 mg IV Q6H PRN PRN Reason: Nausea/Vomiting Sumatriptan [ (Sumatriptan] 1 [place]) 0 each AMBERLY ASDIRECTED PRN PRN Reason: Headache Polyethylene Glycol (Miralax) 17 gm PO DAILY PRN PRN Reason: Constipation Potassium Chloride (Pharmacy To Dose - Potassium Replacement) 1 dose .XX ASDIRECTED [facility] Saccharomyces Boulardii (Florastor) 250 mg PO DAILY [facility] Last Admin: 06/30/18 09:26 Dose: 250 mg Senna/Docusate Sodium (Senna Plus) 1 tab PO BID PRN PRN Reason: Constipation Sodium Chloride (Saline Flush) 10 ml FLUSH ASDIRECTED PRN PRN Reason: Keep Vein Open Last Admin: 06/28/18 17:57 Dose: 10 ml Temazepam (Restoril) 7.5 mg PO BEDTIME PRN PRN Reason: Sleep Last Admin: 06/29/18 20:41 Dose: 7.5 mg Discontinued Medications Ceftriaxone Sodium 2 gm/ (Sodium Chloride) 100 mls @ 200 mls/hr IV ONETIME ONE Stop: 06/28/18 18:00 Last Admin: 06/28/18 18:00 Dose: Not Given Ceftriaxone Sodium 2 gm/ (Sodium Chloride) 100 mls @ 200 mls/hr IV ONETIME ONE Stop: 06/28/18 18:14 Last Admin: 06/28/18 17:56 Dose: 200 mls/hr Ceftriaxone Sodium 2 gm/ (Sodium Chloride) 100 mls @ 200 mls/hr IV Q24H [facility] Stop: 06/29/18 18:01 Last Admin: 06/29/18 17:56 Dose: 200 mls/hr Piperacillin Sod/Tazobactam (Sod 4.5 gm/ Sodium Chloride) 100 mls @ 200 mls/hr IV ONETIME ONE Stop: 06/30/18 09:29 Last Admin: 06/30/18 09:21 Dose: 200 mls/hr Magnesium Oxide (Magnesium Oxide) 800 mg PO ONETIME ONE Stop: 06/30/18 11:01 Last Admin: 06/30/18 11:16 Dose: 800 mg Potassium Chloride (Klor-Con M20) 40 meq PO Q4H JD Stop: 06/29/18 01:46 Last Admin: 06/29/18 00:57 Dose: 40 meq - Exam General: Alert, Oriented, Cooperative, No Acute Distress HEENT: Pupils Equal, Pupils Reactive, EOMI, Mucous Membr. Moist/[place]. No: Scleral Icterus Neck: Supple Lungs: Clear to Auscultation, Normal Respiratory Effort Cardiovascular: Regular Rate, Regular Rhythm GI/Abdominal Exam: Normal Bowel Sounds, Soft, Non-Tender, No Organomegaly, No Distention, No Abnormal Bruit, No Mass, Other (Negative Tom's Sign). No: Guarding, Rigid, Rebound, Tender, Hepatomegaly, Splenomegaly (Female) Exam: Deferred Back Exam: Normal Inspection, Decreased Range of Motion Extremities: Normal Inspection, Normal Range of Motion, Non-Tender, No Pedal Edema, Normal Capillary Refill Peripheral Pulses: 3+: Dorsalis Pedis (L), Dorsalis Pedis (R) Skin: Warm, Dry, Intact Neurological: No New Focal Deficit, Normal Gait Psy/Mental Status: Alert, Normal Affect, Normal Mood - Problem List Review Problem List Initiated/Reviewed/Updated: Yes - My Orders Last 24 Hours: My Active Orders 06/29/18 21:00 Amitriptyline [Elavil] 50 mg PO BEDTIME 06/30/18 09:30 HEPATITIS PANEL (4) [REF] Routine 06/30/18 17:00 Piperacillin/Tazobactam [Piperacil-Tazobact] 4.5 gm Sodium Chloride 0.9% [ Normal Saline] 100 ml IV Q8H 06/30/18 18:00 cefTRIAXone [Rocephin] 2 gm Sodium Chloride 0.9% [Normal Saline] 100 ml IV Q24H 07/01/18 05:11 C-REACTIVE PROTEIN [CHEM] AM CBC WITH AUTO DIFF [HEME] AM MAGNESIUM [CHEM] AM 07/02/18 05:11 C-REACTIVE PROTEIN [CHEM] AM CBC WITH AUTO DIFF [HEME] AM MAGNESIUM [CHEM] AM - Plan Plan:: I/P: Acute: UTI -Failed outpatient treatment -Was seen in clinic and ED for UTI. Continued to have fever and chills -Was noted to be bacteremic and sent here for treatment -UA here shows 1+ protein, trace intact occult blood, 1+ leukocyte esterase, 5-10 WBCs. -4/4 blood cultures positive for E. Coli with some resistance, however sensitive to Rocephin -UC growing E. Coli sensitive to rocephin -Rocephin given in ED - continue -IV fluids as ordered -No leukocytosis -CRP 23.9-->17.8 -Probiotic -Tylenol for fever/pain Bacteremia -4/4 cultures positive for E. Coli with some resistances -2/2 UTI -Treatment as above -Repeat blood cultures drawn 24 Hours after treatment-negative -IV fluids as ordered Transaminitis -Cannot r/o Cholangitis -Bilirubin noted to be 1.9 in clinic and provider believed patient looked jaundiced -Does not appear jaundiced here -Bilirubin here 1.6-->0.8-->0.7 -GGT 156 -Hepatitis Panel ordered -Liver enzymes (clinic and here) -AST 53-->42-->40 -ALT 76-->63-->61 -Alk Phos 104-->116-->130 -Abdominal US was ordered outpatient but ultimately obtained here on 06/29/18 * 1. Slightly dilated CBD with no additional biliary abnormality being seen. MRCP could be obtained to further evaluate. * 2. Other portions of the right upper quadrant abdominal ultrasound are unremarkable. -No abdominal pain -MRCP obtained 06/29/18: * 1. Mildly dilated CHD and CBD with no filling deficits seen to indicate retained stone as an etiology. Difficult to exclude stenosis at the sphincter of OT as an etiology. Formal ERCP could be considered to further evaluate. -Will reach GI specialist today -Monitor CMPs Resolved: S/p Weakness/Fatigue -Likely 2/2 above -VRP ordered and pending -IV fluids as above S/p BRANDON (Labs from clinic and here) -2/2 poor oral intake and medications -On multiple anticholinergic drugs -BUN 24-->19-->18-->15 -Creatinine 1.5-->1.4-->1.4-->1.3-->1.0 -eGFR 35-->38-->38-->46 -IV fluids as ordered Chronic: Impaired vision Recurrent UTIs Migraines Hypothyroidism Anemia Plan: She remains clinically stable Continue current treatment Routine AM labs CM/SW for discharge planning Other orders as indicated above DVT prophylaxis:SCDs PCP: Nya Lacy PA-C Discharge pending repeat blood culture after 48hrs and GI recommendations regarding elevated liver enzymes and abnormal MRI results
--- NOTE | 2018-06-30 13:27 | PCM.SN ---
- Free Text/Narrative Note: Spoke to Dr. Davis and discussed case with him regarding patients elevated liver enzymes and abnormal MRI result with reference to possible need of an ERCP. He recommended HIDA Scan and Direct Bilirubin-if both normal, he states maybe related to infection or medications. Information relayed to and . Unfortunately, HIDA scan could not be done this weekend so we will have to wait till Monday.
[2018-06-30] MEDS: cefTRIAXone 2 GM in Sodium Chloride 0.9% 100 ML IV SCH (17:20)
[2018-06-30] MEDS: Piperacillin/Tazobactam 4.5 GM in Sodium Chloride 0.9% 100 ML IV SCH (17:44)
[2018-06-30] MEDS: Benzocaine/Cetylpyridinium/Menthol Lozenge MUCMEM PRN (21:31)
[2018-06-30] MEDS: Amitriptyline 25 MG Tab PO SCH (21:31)
[2018-07-01] MEDS: Piperacillin/Tazobactam 4.5 GM in Sodium Chloride 0.9% 100 ML IV SCH ×3 (00:23→18:22)
[2018-07-01] MEDS: Levothyroxine 112 MCG Tab PO SCH (05:31)
--- NOTE | 2018-07-01 08:13 | CR ---
Chest: Frontal view of the chest was obtained utilizing portable technique. Comparison: Previous chest x-ray of 06/26/18. Heart size and mediastinum are within normal limits for portable technique. Slight left basilar atelectasis is seen. Lungs otherwise are clear. Bony structures are grossly intact. Impression: 1. Slight left basilar atelectasis. 2. Nothing acute is otherwise seen on portable chest x-ray. Diagnostic code #2 I agree with preliminary report from [facility], finalized on 06/30/18, 3:18 PM Central Time
[2018-07-01] MEDS: Saccharomyces Boulardii (Probiotic) 250 MG Cap PO SCH (08:38)
[2018-07-01] MEDS: Loratadine 10 MG Tab PO SCH (08:39)
[2018-07-01] MEDS: Citalopram 20 MG Tab PO SCH (08:39)
[2018-07-01] MEDS: Magnesium Oxide 400 MG Tab PO SCH ×2 (12:24→14:39)
--- NOTE | 2018-07-01 12:49 | PCM.PN ---
- General Info Date of Service: 07/01/18 Admission Dx/Problem (Free Text): Admission Diagnosis/Problem Admission Diagnosis/Problem Bacteremia Subjective Update: Follow Up Functional Status: Reports: Pain Controlled, Tolerating Diet, Ambulating, Urinating. Denies: New Symptoms - Review of Systems General: Denies: Fever, Weakness, Fatigue, Malaise, Chills, Night Sweats HEENT: Reports: No Symptoms Pulmonary: Denies: Shortness of Breath Cardiovascular: Denies: Chest Pain, Dyspnea on Exertion, Orthopnea Gastrointestinal: Reports: Flatus. Denies: Abdominal Pain, Constipation, Decreased Appetite, Diarrhea, Melena, Nausea, Vomiting Genitourinary: Reports: No Symptoms Musculoskeletal: Reports: No Symptoms Skin: Denies: Cyanosis, Jaundice, Pallor, Diaphoresis, Bruising, Pruritis Neurological: Denies: Confusion, Dizziness, Numbness, Paresthesia, Difficulty Walking, Weakness Psychiatric: Denies: Confusion, Mood Lability, Anxiety, Agitation, Cravings - Patient Data Vitals - Most Recent: Last Vital Signs Temp 36.8 C 07/01/18 08:36 Pulse 64 07/01/18 08:36 Resp 14 07/01/18 05:29 BP 131/67 07/01/18 08:36 Pulse Ox 98 07/01/18 08:36 Weight - Most Recent: 79.379 kg I&O - Last 24 Hours: Intake & Output 06/30/18 07/01/18 07/01/18 22:59 06:59 14:59 Intake Total 2052 2550 180 Balance 2052 2550 180 Lab Results Last 24 Hours: Laboratory Results - last 24 hr 06/30/18 06/30/18 06/30/18 Range/Units 13:33 13:53 13:53 WBC (3.98-10.04) K/mm3 RBC (3.98-5.22) M/mm3 Hgb (11.2-15.7) gm/L Hct (34.1-44.9) % MCV (79.4-94.8) fl MCH (25.6-32.2) pg MCHC (32.2-35.5) g/dl RDW Std Deviation (36.4-46.3) fL Plt Count (182-369) K/mm3 MPV (9.4-12.3) fl Neut % (Auto) (34.0-71.1) % Lymph % (Auto) (19.3-51.7) % [place]att % (Auto) (4.7-12.5) % Eos % (Auto) (0.7-5.8) Baso % (Auto) (0.1-1.2) % Neut # (Auto) (1.56-6.13) K/mm3 Lymph # (Auto) (1.18-3.74) K/mm3 Piatt # (Auto) (0.24-0.36) K/mm3 Eos # (Auto) (0.04-0.36) K/mm3 Baso # (Auto) (0.01-0.08) K/mm3 Manual Slide Review Sodium (136-145) mEq/L Potassium (3.5-5.1) mEq/L Chloride (98-107) mEq/L Carbon Dioxide (21-32) mEq/L Anion Gap (5-15) BUN (7-18) mg/dL Creatinine (0.55-1.02) mg/dL Est Cr Clr Drug Dosing mL/min Estimated GFR (MDRD) (>60) mL/min BUN/Creatinine Ratio (14-18) Glucose (80-115) mg/dL Calcium (8.5-10.1) mg/dL Magnesium (1.8-2.4) mg/dl Total Bilirubin (0.2-1.0) mg/dL Direct Bilirubin 0.40 H (0.0-0.2) mg/dl AST (15-37) U/L ALT (14-59) U/L Alkaline Phosphatase (46-116) U/L CK-MB (CK-2) < 0.5 (0-3.6) ng/ml Troponin I < 0.017 (0.00-0.056) ng/mL C-Reactive Protein (<1.0) mg/dL Total Protein (6.4-8.2) g/dl Albumin (3.4-5.0) g/dl Globulin gm/dL Albumin/Globulin Ratio (1-2) 07/01/18 07/01/18 Range/Units 04:10 04:42 WBC 9.80 (3.98-10.04) K/mm3 RBC 3.13 L (3.98-5.22) M/mm3 Hgb 9.5 L (11.2-15.7) gm/L Hct 28.8 L (34.1-44.9) % MCV 92.0 (79.4-94.8) fl MCH 30.4 (25.6-32.2) pg MCHC 33.0 (32.2-35.5) g/dl RDW Std Deviation 44.0 (36.4-46.3) fL Plt Count 220 (182-369) K/mm3 MPV 10.5 (9.4-12.3) fl Neut % (Auto) 68.1 (34.0-71.1) % Lymph % (Auto) 12.2 L (19.3-51.7) % Piatt % (Auto) 13.9 H (4.7-12.5) % Eos % (Auto) 3.2 (0.7-5.8) Baso % (Auto) 0.4 (0.1-1.2) % Neut # (Auto) 6.67 H (1.56-6.13) K/mm3 Lymph # (Auto) 1.20 (1.18-3.74) K/mm3 [place]att # (Auto) 1.36 H (0.24-0.36) K/mm3 Eos # (Auto) 0.31 (0.04-0.36) K/mm3 Baso # (Auto) 0.04 (0.01-0.08) K/mm3 Manual Slide Review Normal smear Sodium 141 (136-145) mEq/L Potassium 3.9 (3.5-5.1) mEq/L Chloride 108 H (98-107) mEq/L Carbon Dioxide 22 (21-32) mEq/L Anion Gap 14.9 (5-15) BUN 10 (7-18) mg/dL Creatinine 1.0 (0.55-1.02) mg/dL Est Cr Clr Drug Dosing 68.28 mL/min Estimated GFR (MDRD) 56 (>60) mL/min BUN/Creatinine Ratio 10.0 L (14-18) Glucose 99 (80-115) mg/dL Calcium 8.4 L (8.5-10.1) mg/dL Magnesium 1.7 L (1.8-2.4) mg/dl Total Bilirubin 0.8 (0.2-1.0) mg/dL Direct Bilirubin (0.0-0.2) mg/dl AST 143 H (15-37) U/L ALT 171 H (14-59) U/L Alkaline Phosphatase 196 H (46-116) U/L CK-MB (CK-2) (0-3.6) ng/ml Troponin I (0.00-0.056) ng/mL C-Reactive Protein 14.5 H* (<1.0) mg/dL Total Protein 6.1 L (6.4-8.2) g/dl Albumin 2.1 L (3.4-5.0) g/dl Globulin 4.0 gm/dL Albumin/Globulin Ratio 0.5 L (1-2) Oliver Results Last 24 Hours: Microbiology 06/28/18 21:15 Aerobic Blood Culture - Preliminary Blood - Venous - Lab Draw NO GROWTH AFTER 2 DAYS Anaerobic Blood Culture - Final 06/28/18 21:20 Aerobic Blood Culture - Preliminary Blood - Venous NO GROWTH AFTER 2 DAYS Anaerobic Blood Culture - Preliminary NO GROWTH AFTER 2 DAYS 06/29/18 07:20 Urine Culture - Preliminary Urine, Clean Catch NO GROWTH AFTER 1 DAY Med Orders - Current: Current Medications Acetaminophen (Tylenol) 650 mg PO Q4H PRN PRN Reason: Pain (Mild 1-3)/fever Last Admin: 06/30/18 18:27 Dose: 650 mg Hydrocodone Bitart/Acetaminophen ([place] 325-5 Mg) 1 tab PO Q4H PRN PRN Reason: Pain (moderate 4-6) Albuterol/Ipratropium (Duoneb 3.0-0.5 Mg/3 Ml) 3 ml NEB Q4H PRN PRN Reason: Shortness Of Breath/wheezing Amitriptyline HCl (Elavil) 50 mg PO BEDTIME [facility] Last Admin: 06/30/18 21:31 Dose: 50 mg Benzocaine/Menthol (Cepacol Sore Throat) 1 lozenge MUCMEM Q2H PRN PRN Reason: Sore Throat Last Admin: 06/30/18 21:31 Dose: 1 lozenge Bisacodyl (Dulcolax) 5 mg PO DAILY PRN PRN Reason: Constipation Citalopram Hydrobromide (Celexa) 20 mg PO DAILY [facility] Last Admin: 03/17/19 08:39 Dose: 20 mg Docusate Sodium (Colace) 100 mg PO BID PRN PRN Reason: Constipation Flunisolide (Nasalide Nasal [place]) 0 ml NASBOTH Q12H [facility] Last Admin: 07/01/18 08:40 Dose: Not Given Hydralazine HCl (Apresoline) 20 mg IVPUSH Q4H PRN PRN Reason: Hypertension Hydromorphone HCl (Dilaudid) 0.25 mg IVPUSH Q2H PRN PRN Reason: Pain (severe 7-10) Promethazine HCl 6.25 mg/ (Sodium Chloride) 50.25 mls @ 100 mls/hr IV Q6H PRN PRN Reason: Nausea/Vomiting Ceftriaxone Sodium 2 gm/ (Sodium Chloride) 100 mls @ 200 mls/hr IV Q24H [facility] Last Admin: 06/30/18 17:20 Dose: 200 mls/hr Piperacillin Sod/Tazobactam (Sod 4.5 gm/ Sodium Chloride) 100 mls @ 25 mls/hr IV Q8H [facility] Last Admin: 07/01/18 09:33 Dose: 25 mls/hr Levothyroxine Sodium (Levothyroxine) 112 mcg PO ACBREAKFAST [facility] Last Admin: 07/01/18 05:31 Dose: 112 mcg Loratadine (Claritin) 10 mg PO DAILY [facility] Last Admin: 07/01/18 08:39 Dose: 10 mg Lorazepam (Ativan) 2 mg IVPUSH Q4H PRN PRN Reason: Seizures Lorazepam (Ativan) 0.5 mg IV Q6H PRN PRN Reason: Anxiety Last Admin: 07/01/18 00:39 Dose: 0.5 mg Magnesium Oxide (Magnesium Oxide) 800 mg PO Q4H [facility] Stop: 07/01/18 14:46 Last Admin: 07/01/18 12:24 Dose: 800 mg Magnesium Sulfate (Pharmacy To Dose - Magnesium Replacement) 1 dose .XX ASDIRECTED [facility] Metoprolol Tartrate (Lopressor) 5 mg IVPUSH Q4H PRN PRN Reason: Tachycardia Ondansetron HCl (Zofran) 4 mg IV Q6H PRN PRN Reason: Nausea/Vomiting Sumatriptan [ (Sumatriptan] 1 [place]) 0 each AMBERLY ASDIRECTED PRN PRN Reason: Headache Polyethylene Glycol (Miralax) 17 gm PO DAILY PRN PRN Reason: Constipation Potassium Chloride (Pharmacy To Dose - Potassium Replacement) 1 dose .XX ASDIRECTED [facility] Saccharomyces Boulardii (Florastor) 250 mg PO DAILY [facility] Last Admin: 07/01/18 08:38 Dose: 250 mg Senna/Docusate Sodium (Senna Plus) 1 tab PO BID PRN PRN Reason: Constipation Sodium Chloride (Saline Flush) 10 ml FLUSH ASDIRECTED PRN PRN Reason: Keep Vein Open Last Admin: 06/28/18 17:57 Dose: 10 ml Temazepam (Restoril) 7.5 mg PO BEDTIME PRN PRN Reason: Sleep Last Admin: 06/29/18 20:41 Dose: 7.5 mg Discontinued Medications Ceftriaxone Sodium 2 gm/ (Sodium Chloride) 100 mls @ 200 mls/hr IV ONETIME ONE Stop: 06/28/18 18:00 Last Admin: 06/28/18 18:00 Dose: Not Given Sodium Chloride (Normal Saline) 1,000 mls @ 125 mls/hr IV ASDIRECTED [facility] Last Admin: 06/30/18 21:29 Dose: 125 mls/hr Ceftriaxone Sodium 2 gm/ (Sodium Chloride) 100 mls @ 200 mls/hr IV ONETIME ONE Stop: 06/28/18 18:14 Last Admin: 06/28/18 17:56 Dose: 200 mls/hr Ceftriaxone Sodium 2 gm/ (Sodium Chloride) 100 mls @ 200 mls/hr IV Q24H [facility] Stop: 06/29/18 18:01 Last Admin: 06/29/18 17:56 Dose: 200 mls/hr Piperacillin Sod/Tazobactam (Sod 4.5 gm/ Sodium Chloride) 100 mls @ 200 mls/hr IV ONETIME ONE Stop: 06/30/18 09:29 Last Admin: 06/30/18 09:21 Dose: 200 mls/hr Magnesium Oxide (Magnesium Oxide) 800 mg PO ONETIME ONE Stop: 06/30/18 11:01 Last Admin: 06/30/18 11:16 Dose: 800 mg Potassium Chloride (Klor-Con M20) 40 meq PO Q4H [facility] Stop: 06/29/18 01:46 Last Admin: 06/29/18 00:57 Dose: 40 meq - Exam General: Alert, Oriented, Cooperative, No Acute Distress HEENT: Pupils Equal, Pupils Reactive, EOMI, Mucous Membr. Moist/[place] Neck: Supple, Trachea Midline Lungs: Clear to Auscultation, Normal Respiratory Effort Cardiovascular: Regular Rate, Regular Rhythm GI/Abdominal Exam: Normal Bowel Sounds, Soft, Non-Tender, No Organomegaly, No Distention, No Abnormal Bruit, No Mass (Female) Exam: Deferred Back Exam: Normal Inspection, Decreased Range of Motion Extremities: Normal Inspection, Normal Range of Motion, Non-Tender, No Pedal Edema, Normal Capillary Refill Peripheral Pulses: 2+: Dorsalis Pedis (L), Dorsalis Pedis (R) Skin: Warm, Dry, Intact Neurological: No New Focal Deficit, Normal Gait Psy/Mental Status: Alert, Normal Affect, Normal Mood - Problem List Review Problem List Initiated/Reviewed/Updated: Yes - My Orders Last 24 Hours: My Active Orders 06/30/18 13:40 EKG 12 Lead [EK] Stat 06/30/18 14:42 Incentive Spirometry [RT Incentive Spirometry] [RC] ASDIRECTED 06/30/18 17:00 Piperacillin/Tazobactam [Piperacil-Tazobact] 4.5 gm Sodium Chloride 0.9% [ Normal Saline] 100 ml IV Q8H 06/30/18 18:00 cefTRIAXone [Rocephin] 2 gm Sodium Chloride 0.9% [Normal Saline] 100 ml IV Q24H 07/01/18 10:45 Magnesium Oxide 800 mg PO Q4H 07/02/18 05:11 BILIRUBIN DIRECT [CHEM] AM C-REACTIVE PROTEIN [CHEM] AM CBC WITH AUTO DIFF [HEME] AM MAGNESIUM [CHEM] AM 07/02/18 09:30 Cholescintigraphy w Pharm Int [NM] Routine - Plan Plan:: I/P: Acute: UTI 2/ E. coli -Failed outpatient treatment -Was seen in clinic and ED for UTI. Continued to have fever and chills -Was noted to be bacteremic and sent here for treatment -UA here shows 1+ protein, trace intact occult blood, 1+ leukocyte esterase, 5-10 WBCs. -/ blood cultures positive for E. Coli with some resistance, however sensitive to Rocephin -UC growing E. Coli sensitive to Rocephin -Rocephin given in ED - continue -IV fluids as ordered -No leukocytosis -CRP 23.9-->17.8-->18.0-->14.5 -Probiotic -Tylenol for fever/pain Bacteremia -4/4 cultures positive for E. Coli with some resistances -2/2 UTI -Treatment as above -Repeat blood cultures drawn 44 Hours after treatment-negative -IV fluids as ordered Transaminitis -Cannot r/o Cholangitis vs Gilbert Syndrome -Bilirubin noted to be 1.9 in clinic and provider believed patient looked jaundiced -Does not appear jaundiced here -Bilirubin here 1.6-->0.8-->0.7-->0.8; Direct Bili 0.40 -GGT 156 -Hepatitis Panel ordered -Liver enzymes (clinic and here) -AST 53-->42-->40-->118-->143 -ALT 76-->63-->61-->131-->171 -Alk Phos 104-->116-->130 -Abdominal US was ordered outpatient but ultimately obtained here on 06/29/18 * 1. Slightly dilated CBD with no additional biliary abnormality being seen. MRCP could be obtained to further evaluate. * 2. Other portions of the right upper quadrant abdominal ultrasound are unremarkable. -No abdominal pain -MRCP obtained 06/29/18: * 1. Mildly dilated CHD and CBD with no filling deficits seen to indicate retained stone as an etiology. Difficult to exclude stenosis at the sphincter of OT as an etiology. Formal ERCP could be considered to further evaluate. -HIDA scan in AM -Monitor CMPs Hypomagnesemia -Mg 1.7 -2/2 inadequate intake -Replete and monitor Resolved: S/p Weakness/Fatigue -Likely 2/2 above -VRP ordered and pending -IV fluids as above S/p BRANDON (Labs from clinic and here) -2/2 poor oral intake and medications -On multiple anticholinergic drugs -BUN 24-->19-->18-->15 -Creatinine 1.5-->1.4-->1.4-->1.3-->1.0 -eGFR 35-->38-->38-->46 -IV fluids as ordered Chronic: Impaired vision Recurrent UTIs Migraines Hypothyroidism Anemia Plan: She remains clinically stable Continue current treatment Routine AM labs Continue IV Rocephin and Zosyn CM/SW for discharge planning Other orders as indicated above DVT prophylaxis: SCDs PCP: Nya Lacy PA-C Discharge pending repeat HIDA scan result in AM
[2018-07-01] MEDS: cefTRIAXone 2 GM in Sodium Chloride 0.9% 100 ML IV SCH (17:21)
[2018-07-01] MEDS: Amitriptyline 25 MG Tab PO SCH (21:25)
[2018-07-02] MEDS: Piperacillin/Tazobactam 4.5 GM in Sodium Chloride 0.9% 100 ML IV SCH ×2 (01:46→12:55)
[2018-07-02] MEDS: Levothyroxine 112 MCG Tab PO SCH (05:33)
[2018-07-02] MEDS: Citalopram 20 MG Tab PO SCH (09:00)
[2018-07-02] MEDS: Saccharomyces Boulardii (Probiotic) 250 MG Cap PO SCH (09:00)
[2018-07-02] MEDS: Loratadine 10 MG Tab PO SCH (09:00)
--- NOTE | 2018-07-02 09:03 | PCM.DCSUM1 ---
Discharge Summary - Hospital Course HPI Initial Comments: Daisha Aguila is a 62 yo female who presented to our ED from [facility] with fevers, UTI, and bacteremia. She was seen in the [facility] and diagnosed with UTI. Her WBC was also elevated at 19. She was sent to the ED for further management and at that time blood cultures were obtained fluids were given and a CMP was done. She is given a dose of Rocephin and put on by mouth Cipro and discharged to follow up with Nya Lacy PA-C. In follow-up WBC was noted to be coming down along with her bilirubin and liver enzymes. She received another shot of Rocephin. Her blood cultures and returned positive for Escherichia coli and these were reported back to her PCP by the ED provider. At that time it was felt she could be treated as outpatient however she continued to have fever and chills. Reports she is still able to eat and drink and does feel a little better. Abdominal ultrasound was ordered and originally was going to be completed outpatient as it was thought she looked well jaundice. Temp in the ED Was 98.3. Pulse 84. Respirations 16. Blood pressure 110/84. Pulse ox 98%. Labs are obtained: WBC 7.90. Hemoglobin 10.6. Hematocrit 31.5. She is normocytic. Neutrophils are normal at 60.5. Sodium is just a smidge low at 134. Potassium 3.6. Chloride 102. Corrected 20. Anion gap is 15.6. BUN is 18. Creatinine is 1.4. GFR is 38. Glucose 106. Calcium 8.5. Total bilirubin 0.8. AST is 40, ALT 61, alkaline phosphatase 1:30. Protein is 6.5. Albumin is low at 2.5. She started on IV fluids and 2 g Rocephin. She is reporting pain in the right upper quadrant. She carries a history of impaired vision, recurrent UTIs, migraines, hypothyroidism, anemia. She is a DNR/DNI. Her PCP is Nya Lacy PA-C. Diagnosis: Stroke: No - Discharge Data Discharge Date: 07/02/18 (Admit date: 06/28/18) Discharge Disposition: Home, Self-Care 01 Condition: Good - Discharge Diagnosis/Problem(s) (1) Bacteremia SNOMED Code(s): 0142378 ICD Code: R78.81 - BACTEREMIA Status: Resolved Priority: High Current Visit: Yes (2) UTI, Urinary tract infectious disease SNOMED Code(s): 13184199 ICD Code: N39.0 - URINARY TRACT INFECTION, SITE NOT SPECIFIED Status: Acute Priority: High Current Visit: Yes (3) Transaminitis SNOMED Code(s): 053508897, 918890722 ICD Code: R74.0 - NONSPEC ELEV OF LEVELS OF TRANSAMNS & LACTIC ACID DEHYDRGNSE Status: Acute Current Visit: Yes (4) Elevated bilirubin SNOMED Code(s): 426928925 ICD Code: R17 - UNSPECIFIED JAUNDICE Status: Acute Current Visit: Yes - Patient Summary/Data Consults: Consultations 06/28/18 20:42 Consult to Case Management/Felt Machine Mechanic [CONS] Routine Consult to Spiritual Care [CONS] Routine OT Evaluation and Treatment [CONS] Routine PT Evaluation and Treatment [CONS] Routine Labs Pending at D/C: Hepatitis panel Recommended Follow-up Testing/Procedures: Follow-up with PCP within 1 week -Recommend re-check CBC, CMP, Magnesium at that appointment Hospital Course: I/P: Acute: UTI 2/2 E. coli -Failed outpatient treatment -Was seen in clinic and ED for UTI. Continued to have fever and chills -Was noted to be bacteremic and sent here for treatment -UA here shows 1+ protein, trace intact occult blood, 1+ leukocyte esterase, 5-10 WBCs. -4/4 blood cultures positive for E. Coli with some resistance, however sensitive to Rocephin -UC growing E. Coli sensitive to Rocephin -Rocephin given in ED - continue -IV fluids as ordered -No leukocytosis -CRP 23.9-->17.8-->18.0-->14.5-->10.2 -Probiotic -Tylenol for fever/pain Bacteremia -4/4 cultures positive for E. Coli with some resistances -2/2 UTI -Treatment as above -Repeat blood cultures drawn 44 Hours after treatment-negative -IV fluids as ordered Transaminitis -Cannot r/o Cholangitis vs Gilbert Syndrome -Bilirubin noted to be 1.9 in clinic and provider believed patient looked jaundiced -Does not appear jaundiced here -Started on zosyn over concerns over cholangitis -Bilirubin here 1.6-->0.8-->0.7-->0.8-->0.7; Direct Bili 0.40-->0.2 -GGT 156 -Hepatitis Panel ordered and pending -Liver enzymes (clinic and here) -AST 53-->42-->40-->118-->143-->67 -ALT 76-->63-->61-->131-->171-->134 -Alk Phos 104-->116-->130-->196-->189 -Abdominal US was ordered outpatient but ultimately obtained here on 06/29/18 * 1. Slightly dilated CBD with no additional biliary abnormality being seen. MRCP could be obtained to further evaluate. * 2. Other portions of the right upper quadrant abdominal ultrasound are unremarkable. -No abdominal pain -MRCP obtained 06/29/18: * 1. Mildly dilated CHD and CBD with no filling deficits seen to indicate retained stone as an etiology. Difficult to exclude stenosis at the sphincter of OT as an etiology. Formal ERCP could be considered to further evaluate. -HIDA scan negative -Monitor CMPs Resolved: S/p Weakness/Fatigue -Likely 2/2 above -VRP negative -IV fluids as above S/p BRANDON (Labs from clinic and here) -2/2 poor oral intake and medications -On multiple anticholinergic drugs -BUN 24-->19-->18-->15 -Creatinine 1.5-->1.4-->1.4-->1.3-->1.0 -eGFR 35-->38-->38-->46 -IV fluids as ordered S/P Hypomagnesemia -Mg 1.7-->1.9 -2/2 inadequate intake -Replete and monitor Chronic: Impaired vision Recurrent UTIs Migraines Hypothyroidism Anemia Plan: She remains clinically stable Continue current treatment Routine AM labs Continue IV Rocephin and Zosyn CM/SW for discharge planning Other orders as indicated above DVT prophylaxis: SCDs PCP: Nya Lacy PA-C Discharge pending repeat HIDA scan result in AM Daisha was admitted from the ED after failed outpatient treatment for a UTI and bacteremia. She started on Rocephin in the ED prior to being admitted. Prior labs were reviewed and prior urine culture and blood cultures returned Escherichia coli sensitive to Rocephin. Repeat blood cultures and UA were done 2 days after initiation of treatment and all returned negative for any growth thus far. She was noted to be somewhat jaundiced by her primary care provider so a right upper quadrant abdominal ultrasound was performed showing some CBD dilation but no obvious stones. She was not having any abdominal pain. MRCP was obtained that also showed some duct dilation but no retained stones. Dr. Ngo Contacted ANGI Garrett at [facility] to discuss the case with him. He suggested a HIDA scan and reported that if this is normal there is nothing more to do. HIDA scan was obtained and was negative showing a normal EF. She is also noted to have transaminitis. Direct bilirubin was initially elevated but this did trend down. Liver enzymes trended down as well after rising. Unsure if this is from Gilbert's syndrome or a prior stone that had been passed. She denied any abdominal pain and is not currently jaundiced. She has no current complaints. Viral panel was negative. Electrolytes were replaced. CRP is trended down as well. She was started on a probiotic and this will be continued outpatient. She will be discharged home today on a 5 day course of 500 mg Cipro as well as a probiotic. She should follow-up with her PCP within one week. Recommending repeating CBC, CMP, and magnesium. She was instructed to contact her PCP, all walk-in clinic, or return to the ED should symptoms return. - Patient Instructions Diet: Usual Diet as Tolerated Activity: As Tolerated Showering/Bathing: May Shower Notify Provider of: Fever, Increased Pain, Nausea and/or Vomiting Other/Special Instructions: - Please take all new medications as directed. - Resume all home medications and routine home activities as tolerated. - Recommend repeat CBC, Mg and CMP in 1 week through your PCP's office. - Call or follow up with your PCP for any questions or concerns after discharge. - Follow up with your PCP in 1 week. - Come back or seek immediate care should your symptoms persist or get worse - Discharge Plan *PRESCRIPTION DRUG MONITORING PROGRAM REVIEWED*: No *COPY OF PRESCRIPTION DRUG MONITORING REPORT IN PATIENT BENNETT: No Prescriptions/Med Rec: Ciprofloxacin HCl [Cipro] 500 mg PO BEDTIME #5 tablet Saccharomyces Boulardii [Florastor] 250 mg PO BEDTIME #5 capsule Home Medications: Home Meds Amitriptyline [Elavil] 50 mg PO DAILY 06/26/18 [History] Citalopram [Citalopram HBr] 20 mg PO DAILY 06/26/18 [History] Fluticasone Propionate [Flonase] 2 spray NASBOTH DAILY 06/26/18 [History] Levothyroxine Sodium [Synthroid] 112 mcg PO DAILY 06/26/18 [History] Loratadine [Claritin] 10 mg PO DAILY 06/26/18 [History] SUMAtriptan [Sumatriptan] 1 spray AMBERLY ASDIRECTED PRN 06/26/18 [History] Ciprofloxacin HCl [Cipro] 500 mg PO BEDTIME #5 tablet 07/02/18 [Rx] Saccharomyces Boulardii [Florastor] 250 mg PO BEDTIME #5 capsule 07/02/18 [Rx] Oxygen Therapy Mode: Room Air Patient Handouts: Jaundice, Adult, [id number], Urinary Tract Infection, Adult , [id number], Bacteremia Referrals: Tahmian Lacy PA-C [Primary Care Provider] - - Discharge Summary/Plan Comment DC Time >30 min.: Yes (45 min) - General Info Date of Service: 07/02/18 Admission Dx/Problem (Free Text: Admission Diagnosis/Problem Admission Diagnosis/Problem Bacteremia Subjective Update: In to see Daisha with Dr. Ngo. She reports she feels good and has no complaints. We discussed the possible causes of her transaminitis and her HIDA scan results. Her is at bedside. No nursing concerns. She will be discharged today. Functional Status: Reports: Pain Controlled, Tolerating Diet, Ambulating, Urinating. Denies: New Symptoms - Review of Systems General: Reports: No Symptoms. Denies: Fever, Weakness, Fatigue, Malaise, Chills HEENT: Reports: No Symptoms. Denies: Headaches, Sinus Congestion, Sore Throat Pulmonary: Reports: No Symptoms. Denies: Shortness of Breath, Pleuritic Chest Pain, Cough, Sputum Cardiovascular: Reports: No Symptoms. Denies: Chest Pain, Palpitations, Dyspnea on Exertion, Orthopnea, Edema Gastrointestinal: Reports: No Symptoms. Denies: Abdominal Pain, Constipation, Diarrhea, Nausea, Vomiting Genitourinary: Reports: No Symptoms. Denies: Pain Musculoskeletal: Reports: No Symptoms Skin: Reports: No Symptoms. Denies: Cyanosis, Jaundice Neurological: Reports: No Symptoms. Denies: Confusion, Dizziness, Headache, Numbness, Paresthesia, Pre-Existing Deficit, Tremors, Trouble Speaking, Difficulty Walking, Weakness, Change in Speech, Gait Disturbance Psychiatric: Reports: No Symptoms - Patient Data Vitals - Most Recent: Last Vital Signs Temp 96.3 F 07/02/18 07:47 Pulse 72 07/02/18 07:47 Resp 14 07/02/18 07:47 BP 116/77 07/02/18 07:47 Pulse Ox 100 07/02/18 07:47 Weight - Most Recent: 171 lb 6.4 oz I&O - Last 24 hours: Intake & Output 07/01/18 07/02/18 07/02/18 22:59 06:59 14:59 Intake Total 1097 1100 Balance 1097 1100 Lab Results - Last 24 hrs: Laboratory Results - last 24 hr 07/02/18 07/02/18 Range/Units 04:45 04:45 WBC 10.61 H (3.98-10.04) K/mm3 RBC 3.34 L (3.98-5.22) M/mm3 Hgb 10.0 L (11.2-15.7) gm/L Hct 30.7 L (34.1-44.9) % MCV 91.9 (79.4-94.8) fl MCH 29.9 (25.6-32.2) pg MCHC 32.6 (32.2-35.5) g/dl RDW Std Deviation 44.7 (36.4-46.3) fL Plt Count 334 (182-369) K/mm3 MPV 10.2 (9.4-12.3) fl Neut % (Auto) 64.2 (34.0-71.1) % Lymph % (Auto) 16.7 L (19.3-51.7) % [place] % (Auto) 11.3 (4.7-12.5) % Eos % (Auto) 4.2 (0.7-5.8) Baso % (Auto) 0.8 (0.1-1.2) % Neut # (Auto) 6.80 H (1.56-6.13) K/mm3 Lymph # (Auto) 1.77 (1.18-3.74) K/mm3 [place] # (Auto) 1.20 H (0.24-0.36) K/mm3 Eos # (Auto) 0.45 H (0.04-0.36) K/mm3 Baso # (Auto) 0.09 H (0.01-0.08) K/mm3 Manual Slide Review Normal smear Sodium 140 (136-145) mEq/L Potassium 4.0 (3.5-5.1) mEq/L Chloride 106 (98-107) mEq/L Carbon Dioxide 25 (21-32) mEq/L Anion Gap 13.0 (5-15) BUN 9 (7-18) mg/dL Creatinine 1.0 (0.55-1.02) mg/dL Est Cr Clr Drug Dosing 68.28 mL/min Estimated GFR (MDRD) 56 (>60) mL/min BUN/Creatinine Ratio 9.0 L (14-18) Glucose 92 (80-115) mg/dL Calcium 8.6 (8.5-10.1) mg/dL Magnesium 1.9 (1.8-2.4) mg/dl Total Bilirubin 0.7 (0.2-1.0) mg/dL Direct Bilirubin 0.20 (0.0-0.2) mg/dl AST 67 H (15-37) U/L ALT 134 H (14-59) U/L Alkaline Phosphatase 189 H (46-116) U/L C-Reactive Protein 10.2 H* (<1.0) mg/dL Total Protein 6.4 (6.4-8.2) g/dl Albumin 2.2 L (3.4-5.0) g/dl Globulin 4.2 gm/dL Albumin/Globulin Ratio 0.5 L (1-2) SASHA Results - Last 24 hrs: Microbiology 06/28/18 21:15 Aerobic Blood Culture - Preliminary Blood - Venous - Lab Draw NO GROWTH AFTER 3 DAYS Anaerobic Blood Culture - Final 06/28/18 21:20 Aerobic Blood Culture - Preliminary Blood - Venous NO GROWTH AFTER 3 DAYS Anaerobic Blood Culture - Preliminary NO GROWTH AFTER 3 DAYS 06/29/18 07:20 Urine Culture - Final Urine, Clean Catch NO GROWTH AFTER 2 DAYS Med Orders - Current: Current Medications Acetaminophen (Tylenol) 650 mg PO Q4H PRN PRN Reason: Pain (Mild 1-3)/fever Last Admin: 06/30/18 18:27 Dose: 650 mg Hydrocodone Bitart/Acetaminophen ([place] 325-5 Mg) 1 tab PO Q4H PRN PRN Reason: Pain (moderate 4-6) Albuterol/Ipratropium (Duoneb 3.0-0.5 Mg/3 Ml) 3 ml NEB Q4H PRN PRN Reason: Shortness Of Breath/wheezing Amitriptyline HCl (Elavil) 50 mg PO BEDTIME [facility] Last Admin: 07/01/18 21:25 Dose: 50 mg Benzocaine/Menthol (Cepacol Sore Throat) 1 lozenge MUCMEM Q2H PRN PRN Reason: Sore Throat Last Admin: 06/30/18 21:31 Dose: 1 lozenge Bisacodyl (Dulcolax) 5 mg PO DAILY PRN PRN Reason: Constipation Citalopram Hydrobromide (Celexa) 20 mg PO DAILY [facility] Last Admin: 07/02/18 09:00 Dose: 20 mg Docusate Sodium (Colace) 100 mg PO BID PRN PRN Reason: Constipation Flunisolide (Nasalide Nasal [place]) 0 ml NASBOTH Q12H [facility] Last Admin: 07/02/18 09:00 Dose: 2 spray Hydralazine HCl (Apresoline) 20 mg IVPUSH Q4H PRN PRN Reason: Hypertension Hydromorphone HCl (Dilaudid) 0.25 mg IVPUSH Q2H PRN PRN Reason: Pain (severe 7-10) Promethazine HCl 6.25 mg/ (Sodium Chloride) 50.25 mls @ 100 mls/hr IV Q6H PRN PRN Reason: Nausea/Vomiting Ceftriaxone Sodium 2 gm/ (Sodium Chloride) 100 mls @ 200 mls/hr IV Q24H [facility] Last Admin: 07/01/18 17:21 Dose: 200 mls/hr Piperacillin Sod/Tazobactam (Sod 4.5 gm/ Sodium Chloride) 100 mls @ 25 mls/hr IV Q8H [facility] Last Admin: 07/02/18 01:46 Dose: 25 mls/hr Levothyroxine Sodium (Levothyroxine) 112 mcg PO ACBREAKFAST [facility] Last Admin: 07/02/18 05:33 Dose: 112 mcg Loratadine (Claritin) 10 mg PO DAILY [facility] Last Admin: 07/02/18 09:00 Dose: 10 mg Lorazepam (Ativan) 2 mg IVPUSH Q4H PRN PRN Reason: Seizures Lorazepam (Ativan) 0.5 mg IV Q6H PRN PRN Reason: Anxiety Last Admin: 07/01/18 00:39 Dose: 0.5 mg Magnesium Sulfate (Pharmacy To Dose - Magnesium Replacement) 1 dose .XX ASDIRECTED [facility] Metoprolol Tartrate (Lopressor) 5 mg IVPUSH Q4H PRN PRN Reason: Tachycardia Ondansetron HCl (Zofran) 4 mg IV Q6H PRN PRN Reason: Nausea/Vomiting Sumatriptan [ (Sumatriptan] 1 [place]) 0 each AMBERLY ASDIRECTED PRN PRN Reason: Headache Polyethylene Glycol (Miralax) 17 gm PO DAILY PRN PRN Reason: Constipation Potassium Chloride (Pharmacy To Dose - Potassium Replacement) 1 dose .XX ASDIRECTED [facility] Saccharomyces Boulardii (Florastor) 250 mg PO DAILY [facility] Last Admin: 07/02/18 09:00 Dose: 250 mg Senna/Docusate Sodium (Senna Plus) 1 tab PO BID PRN PRN Reason: Constipation Sodium Chloride (Saline Flush) 10 ml FLUSH ASDIRECTED PRN PRN Reason: Keep Vein Open Last Admin: 06/28/18 17:57 Dose: 10 ml Temazepam (Restoril) 7.5 mg PO BEDTIME PRN PRN Reason: Sleep Last Admin: 06/29/18 20:41 Dose: 7.5 mg Discontinued Medications Ceftriaxone Sodium 2 gm/ (Sodium Chloride) 100 mls @ 200 mls/hr IV ONETIME ONE Stop: 06/28/18 18:00 Last Admin: 06/28/18 18:00 Dose: Not Given Sodium Chloride (Normal Saline) 1,000 mls @ 125 mls/hr IV ASDIRECTED [facility] Last Admin: 06/30/18 21:29 Dose: 125 mls/hr Ceftriaxone Sodium 2 gm/ (Sodium Chloride) 100 mls @ 200 mls/hr IV ONETIME ONE Stop: 06/28/18 18:14 Last Admin: 06/28/18 17:56 Dose: 200 mls/hr Ceftriaxone Sodium 2 gm/ (Sodium Chloride) 100 mls @ 200 mls/hr IV Q24H [facility] Stop: 06/29/18 18:01 Last Admin: 06/29/18 17:56 Dose: 200 mls/hr Piperacillin Sod/Tazobactam (Sod 4.5 gm/ Sodium Chloride) 100 mls @ 200 mls/hr IV ONETIME ONE Stop: 06/30/18 09:29 Last Admin: 06/30/18 09:21 Dose: 200 mls/hr Magnesium Oxide (Magnesium Oxide) 800 mg PO ONETIME ONE Stop: 06/30/18 11:01 Last Admin: 06/30/18 11:16 Dose: 800 mg Magnesium Oxide (Magnesium Oxide) 800 mg PO Q4H [facility] Stop: 07/01/18 14:46 Last Admin: 07/01/18 14:39 Dose: 800 mg Potassium Chloride (Klor-Con M20) 40 meq PO Q4H [facility] Stop: 06/29/18 01:46 Last Admin: 06/29/18 00:57 Dose: 40 meq - Exam Quality Assessment: Reports: DVT Prophylaxis General: Reports: Alert, Oriented, Cooperative, No Acute Distress HEENT: Reports: Pupils Equal, Pupils Reactive, EOMI, Mucous Membr. Moist/Lyman Neck: Reports: Supple, Trachea Midline Lungs: Reports: Clear to Auscultation, Normal Respiratory Effort Cardiovascular: Reports: Regular Rate, Regular Rhythm GI/Abdominal Exam: Normal Bowel Sounds, Soft, Non-Tender, No Organomegaly, No Distention (Female) Exam: Deferred Rectal (Female) Exam: Deferred Back Exam: Reports: Normal Inspection, Full Range of Motion Extremities: Normal Inspection, Normal Range of Motion, Non-Tender, No Pedal Edema, Normal Capillary Refill Skin: Reports: Warm, Dry, Intact Neurological: Reports: No New Focal Deficit Psy/Mental Status: Reports: Alert, Normal Affect, Normal Mood
[2018-07-02] MEDS ORDERED: Piperacillin/Tazobactam 4.5 GM in Sodium Chloride 0.9% 100 ML IV SCH (12:00)
--- NOTE | 2018-07-02 12:51 | NM ---
Biliary HIDA scan with ejection fraction Technique: 2.8 mCi of technetium 99m mebrofenin was given intravenously. Scintigraphic imaging then obtained over the upper abdomen. During the study 3 ounces of heavy whipping cream was given with 1 teaspoon of sugar. Continued scintigraphic imaging was performed. Comparison: Previous MRI cholangiogram study of 06/29/18 and right upper quadrant abdominal ultrasound study of 06/29/18. Findings: Normal activity is seen within gallbladder and small bowel. Gallbladder ejection fraction is 88%. Impression: 1. No abnormality is identified on biliary HIDA scan with normal ejection fraction being seen. Diagnostic code #1
== END 2018-07-02 16:10 | disposition home or self-care (01) | DRG 689 ==
LOC: JD.ED 16:40 → JD.MS 18:46
PROVIDERS: ADMIT Internal Medicine; ATTEND Internal Medicine
DX: N39.0 Urinary tract infection, site not specified (principal); A41.51 Sepsis due to Escherichia coli [E. coli]; N17.9 Acute kidney failure, unspecified; J98.11 Atelectasis; K83.09 Other cholangitis; H54.7 Unspecified visual loss; G43.909 Migraine, unspecified, not intractable, without status migrainosus; E03.9 Hypothyroidism, unspecified; D64.9 Anemia, unspecified; E80.4 Gilbert syndrome; E83.42 Hypomagnesemia; Z79.890 Hormone replacement therapy; Z79.899 Other long term (current) drug therapy; Z66 Do not resuscitate; Z87.440 Personal history of urinary (tract) infections; Z90.710 Acquired absence of both cervix and uterus
CPT/HCPCS: 36415; 71045; 71045-26; 74181; 74181-26; 76705; 76705-26; 78227; 78227-26; 80048; 80053; 80074; 81001; 82248; 82553; 82977; 83735; 84484; 85025; 86140; 87040; 87086; 87486; 87581; 87632; 87798; 93005; 96365; 97161-GP; 97165-GO; 99284; 99284-25; A9270-GY; A9537; J0696; J2060; J2543; J7030; J7040